=== PATIENT | female | born 1950 | race Caucasian/White ===

== ENCOUNTER 2020-04-07 07:43 | Outpatient (REF) | payer MEDICARE, MEDICAID, SELFPAY ==
[2020-04-07 08:32] LABS: Cholesterol 226 mg/dL; Glucose Fasting 98 mg/dL (60-99); HDL Cholesterol 59 mg/dL; LDL Cholesterol Calculated 143 mg/dl; Triglycerides 123 mg/dL
== END 2020-04-07 07:44 | disposition home or self-care (01) ==
LOC: HO.LAB 07:43
PROVIDERS: PCP Internal Medicine; Visit Provider Psychiatry & Neurology Psychiatry
DX: F33.42 Major depressive disorder, recurrent, in full remission (principal); Z79.899 Other long term (current) drug therapy
CPT/HCPCS: 80061; 82947

== ENCOUNTER 2020-08-29 16:55 | Outpatient (REF) | payer MEDICARE, MEDICAID, SELFPAY ==
--- NOTE | ~2020-08-29 | XR_ITS ---
EXAMINATION: XR HIP, LEFT CLINICAL INFORMATION: Left hip pain. COMPARISON: None TECHNIQUE: Two views of the left hip. FINDINGS: Bones and soft tissues are normal. No lytic or blastic osseous lesions. No fracture. Alignment is anatomic. Hip joint space is maintained. XR/XR hip LT min 2V IMPRESSION: Left hip: No acute fracture or malalignment. Preserved left hip joint space. No lytic or blastic osseous lesions.
== END 2020-08-29 16:56 | disposition home or self-care (01) ==
LOC: HO.XRAY 16:55
PROVIDERS: PCP Internal Medicine; Visit Provider Internal Medicine
DX: M25.552 Pain in left hip (principal)
CPT/HCPCS: 73502

== ENCOUNTER 2021-05-05 20:09 | Emergency (ER) | payer MEDICARE, MEDICAID, SELFPAY ==
--- NOTE | ~2021-05-05 | XR_ITS ---
EXAMINATION: XR CHEST CLINICAL INFORMATION: Cough COMPARISON: Chest CT 03/04/2018 TECHNIQUE: Frontal view of the chest was obtained. FINDINGS: The lungs are well expanded and clear of acute opacity. There is a nodular density in the right perihilar region, likely corresponding to fusiform nodularity demonstrated on previous chest CT. There is no active pleural disease. The mediastinum is unremarkable. There is no vascular congestion. XR/XR chest 1V IMPRESSION: No acute abnormality is seen in the chest. Small right perihilar nodular density, likely unchanged from prior chest CT.
--- NOTE | ~2021-05-05 | CT_ITS ---
EXAMINATION: CT ABDOMEN AND PELVIS WITH CONTRAST CLINICAL INFORMATION: Right-sided abdominal pain. COMPARISON: CT abdomen/pelvis dated from 03/14/2013. CT chest dated from 07/08/2017. TECHNIQUE: Multidetector volumetric images were obtained from the superior aspect of the liver through the pubic symphysis following administration 85 mL of Omnipaque 350 intravenous contrast. Sagittal and coronal reformatted images were obtained on the technologist's workstation. Oral contrast: No This CT examination was performed using dose optimization techniques as appropriate, variously including the following: *Automated exposure control *Adjustment of mA and/or kV according to patient size (this includes techniques or standardized protocols for targeted exams where dose is matched to indication/reason for exam; i.e. extremities or head) *Use of iterative reconstruction technique DLP: 799 mGy-cm FINDINGS: LUNG BASES: Focal tree-in-bud nodularities in the right lower lobe (4:1) are unchanged. Similarly, an area of subpleural thickening in the right middle lobe (images 6 through 25 of series 4) is unchanged. LIVER, GALLBLADDER, AND BILIARY TREE: Redemonstration of a calcified granuloma in the hepatic dome (3:10). Otherwise, the liver is normal in size, shape and attenuation without focal abnormalities. Cholecystectomy with stable dilatation of the common bile duct measuring up to 0.8 cm since 2012. No intrahepatic biliary ductal dilatation. PANCREAS: Unremarkable. SPLEEN: Unremarkable. ADRENAL GLANDS: Unremarkable. KIDNEYS AND URETERS: The kidneys are normal in size, shape, and attenuation. There is a 2.1 cm water density cyst in the lower pole of the right kidney (5:44). There are multiple other too small to characterize cortical hypodensities which statistically are likely to represent simple cysts and do not require further follow-up. No hydronephrosis, hydroureter, or calculi seen. No perinephric stranding. BLADDER: Unremarkable. GASTROINTESTINAL TRACT: The stomach and the small bowel are nondilated. No active inflammatory bowel changes. Normal appendix. Mild diverticulosis. No bowel obstruction. ABDOMINAL WALL: No significant hernia. Similar asymmetric atrophy of the right iliopsoas muscle and right gluteal muscles. Indeterminate soft tissue granuloma in the left lower abdominal wall (3:52) likely from a prior injection site or remote trauma. LYMPH NODES: No lymphadenopathy by size criteria. VASCULAR: Atherosclerotic disease. The abdominal aorta is of normal diameter. PELVIC VISCERA: No pelvic masses. OSSEOUS STRUCTURES: No acute or aggressive osseous abnormalities. Thoracolumbar spondylosis. Partially visualized total right-sided hip arthroplasty. CT/CT abdomen pelvis w con IMPRESSION: No acute abdominal or pelvic abnormalities to explain the patient's symptoms. Mild diverticulosis without evidence of acute diverticulitis. Stable prominence of the common bile duct since 2012 likely related with post cholecystectomy state and patient's age. Stable tree-in-bud nodularities in the right lower lobe since 2018.
[2021-05-05 22:25] VITALS: BP 175/76; PULSE 64; RESP 18; TEMP 37.1; O2SAT 97; BMI 34.0
[2021-05-06 07:16] VITALS: BP 173/67; PULSE 69; RESP 18; O2SAT 97
[2021-05-06 07:26] LABS: MANUAL DIFF FLAG NO
[2021-05-06 07:27] LABS: Basophils Percent Auto 0.2 % (0-2); Eosinophils Absolute Auto 0.1 X10*3/uL (0.0-0.4); Hematocrit 39.4 % (37.0-47.0); Hemoglobin 12.9 g/dl (12.0-16.0); Imm Gran Abs Auto 0.04 X10*3/uL (0.00-0.03); Imm Gran Pct Auto 0.4 % (0.0-0.4); Lymphocytes Percent Auto 20.3 % (20-40); Mean Corpuscular HGB Conc 32.7 g/dl (31.0-35.0); Mean Corpuscular Volume 91.6 fL (80.0-98.0); Monocytes Absolute Auto 0.8 X10*3/uL (0.1-1.2); Monocytes Percent Auto 8.7 % (2-11); Neutrophils Absolute Auto 6.7 x10*3/uL (2.0-8.3); Neutrophils Percent Auto 69.4 % (45-73); Platelet Count 350 X10*3/uL (160-400); White Blood Count 9.6 X10*3/uL (4.8-10.8)
[2021-05-06 07:55] LABS: Alanine Aminotransferase 19 U/L (0-31); Alkaline Phosphatase 43 U/L (39-117); Anion Gap 10 (12-20); Aspartate Amino Transferase 21 U/L (5-31); Bilirubin Total < 0.2 mg/dL (0.0-1.0); Blood Urea Nitrogen 17 mg/dL (9-16); Calcium 9.6 mg/dL (8.4-10.2); Carbon Dioxide 29 mmol/L (22-29); Chloride 105 mmol/L (96-108); Creatinine Clr Calc Pharmacy 56.5; Estimated Glomerular Filt Rate > 60; Glucose Random 94 mg/dL (60-115); Lipase 36 U/L (8-78); Potassium 4.3 mmol/L (3.3-5.1); Sodium 140 mmol/L (135-145); Total Protein 6.9 g/dL (6.5-8.0)
--- NOTE | 2021-05-06 08:52 | ED_ITS ---
HPI - Abdominal Pain General Chief Complaint: General Medical Stated Complaint: abd pain Time Seen by Provider: 05/05/21 22:11 Source: patient Mode of arrival: ambulatory Limitations: no limitations History of Present Illness MD elicited complaint: abdominal pain Pertinent past history: none Onset (ago): week(s) (much worse past week) Pain Consistency: intermittent Location: RLQ Severity: moderate Quality: stabbing Radiation: none Migration to: no migration Exacerbating factors: other (coughing) Relieving factors: nothing Associated symptoms: denies other symptoms Related Data Previous Rx's Medication Instructions Recorded fluoride (sodium) 1.1 % dental gel 1 appl PO DIRECTED 30 Days #100 04/16/20 (PreviDent 5000 Dry Mouth) cap ibuprofen 800 mg tablet 800 mg PO Q8H PRN 30 Days #90 tab 08/30/20 acyclovir 5 % topical cream 1 appl TOPICAL ONCE 5 Days #5 g 09/06/20 (Zovirax) valacyclovir 500 mg tablet 500 mg PO BID 7 Days #14 tab 09/06/20 (Valtrex) acyclovir 5 % topical ointment 1 appl TOPICAL 6XD 7 Days #10 g 09/07/20 (Zovirax) acetaminophen 300 mg-codeine 30 mg 1 tab PO Q8H PRN 7 Days #21 tab 09/11/20 tablet tamsulosin 0.4 mg capsule 0.4 mg PO BEDTIME 7 Days #7 cap 09/14/20 left below knee prosthetic liners #2 ea 03/09/21 cyclobenzaprine 10 mg tablet 10 mg PO TID PRN #14 tab 05/06/21 Allergies Allergy/AdvReac Type Severity Reaction Status Date / Time No Known Allergies Allergy Verified 04/03/20 06:55 Review of Systems Review of Systems Constitutional : No Weight loss, No Fever, No Chills ENT/Mouth : No sore throat, No Rhinorrhea Eyes: No Swelling, No Redness Cardiovascular : No Chest Pain, No SOB, NoEdema Respiratory : No Cough, No Sputum, No Wheezing Gastrointestinal :no Nausea, no Vomiting, no Diarrhea, positive abdominal Pain, No Hematochezia, No Melena Genitourinary : No Dysuria, No Urinary Frequency, No Hematuria, No Urgency Musculoskeletal : No joint pain, No Myalgias, No Joint Swelling Skin : No Skin Lesions, No rash Neuro : No Weakness, No Numbness, No Dizziness, No Headache Psych : No Anxiety/Panic, No Depression Heme/Lymph: No Bruising, No Lymphadenopathy Endocrine : No Polyuria, No Polydipsia All other systems reviewed and are negative. Physical Exam Vital Signs: Vital Signs: Last Vital Signs Temp 97.9 F 05/06/21 09:17 Pulse 64 05/06/21 09:17 Resp 16 05/06/21 09:17 BP 136/70 05/06/21 09:17 Pulse Ox 97 05/06/21 09:17 BMI result Body Mass Index 34.0 Appearance: Alert. Oriented X3. No acute distress. Eyes: Pupils equal, round and reactive to light. ENT: Pharynx normal. Neck: Normal inspection. Neck supple. CVS: Normal heart rate and rhythm. Pulses normal. Respiratory: No respiratory distress. Breath sounds normal. Abdomen: Soft and mild R mid abdomen ttp I do not appreciate mass or defect Skin: Skin warm and dry. Normal skin color. Normal skin turgor. Extremities: No lower extremity edema. No calf ttp Neuro: Oriented X 3. No motor deficit. No sensory deficit. Course Course Course Narrative: slight hematuria no UA symptoms CT scan negative stable for outpatient treatment likely MSK strain MDM - Abdominal Pain MDM Narrative Medical decision making narrative: 70 yo female with hx of kidney stones pre sents with c/o R sided abdominal pain with coughing no mass felt no AC therapy or risk factors for rectus sheath hematoma at this time will obtain labs, UA, CT scan for mass/appendicitis, declines pain medications at this time. Lab Data Result diagrams: 05/06/21 07:21 05/06/21 07:21 Labs: Lab Results 05/06/21 05/06/21 05/06/21 Range/Units 07:21 07:21 09:13 WBC 9.6 (4.8-10.8) X10*3/uL RBC 4.30 (4.20-5.50) X10*6/uL Hgb 12.9 (12.0-16.0) g/dl Hct 39.4 (37.0-47.0) % MCV 91.6 (80.0-98.0) fL MCH 30.0 (27.0-33.0) pg MCHC 32.7 (31.0-35.0) g/dl RDW 13.0 (11.0-16.0) % Plt Count 350 (160-400) X10*3/uL MPV 9.0 L (9.4-12.3) fL Immature Gran % (Auto) 0.4 (0.0-0.4) % Neut % (Auto) 69.4 (45-73) % Lymph % (Auto) 20.3 (20-40) % [place] % (Auto) 8.7 (2-11) % Eos % (Auto) 1.0 (0-4) % Baso % (Auto) 0.2 (0-2) % Lymph # (Auto) 2.0 (1.2-4.9) X10*3/uL [place] # (Auto) 0.8 (0.1-1.2) X10*3/uL Eos # (Auto) 0.1 (0.0-0.4) X10*3/uL Baso # (Auto) 0.0 (0.0-0.2) X10*3/uL Abs Immat Gran (auto) 0.04 H (0.00-0.03) X10*3/uL Absolute Neuts (auto) 6.7 (2.0-8.3) x10*3/uL Absolute Nucleated RBC 0.000 (0.0-0.012) X10*3/uL Nucleated RBC % (auto) 0.0 (0.0-0.2) /100WBC Sodium 140 (135-145) mmol/L Potassium 4.3 (3.3-5.1) mmol/L Chloride 105 (96-108) mmol/L Carbon Dioxide 29 (22-29) mmol/L Anion Gap 10 L (12-20) BUN 17 H (9-16) mg/dL Creatinine 0.87 (0.5-1.4) mg/dL Estim Creat Clear Calc 56.5 Estimated GFR > 60 Random Glucose 94 (60-115) mg/dL Calcium 9.6 (8.4-10.2) mg/dL Total Bilirubin < 0.2 (0.0-1.0) mg/dL AST 21 (5-31) U/L ALT 19 (0-31) U/L Alkaline Phosphatase 43 (39-117) U/L Total Protein 6.9 (6.5-8.0) g/dL Albumin 4.0 (3.5-5.0) g/dL Lipase 36 (8-78) U/L Urine Color YELLOW Urine Appearance CLEAR Urine pH 6.0 (5.0-8.0) Ur Specific [place] 1.025 (1.005-1.025) Urine Protein NEG (NEG-TRACE) MG/DL Urine Glucose (UA) NEG (NEG) MG/DL Urine Ketones NEG (NEG) MG/DL Urine Blood 2+ H (NEG) Urine Nitrite NEG (NEG) Ur Leukocyte Esterase NEG (NEG) Urine RBC 5-9 H (0) /HPF Urine WBC 0-2 (0-4) /HPF Ur Squamous Epith Cells 1+ /LPF Urine Bacteria TRACE /LPF COVID-19 (TONY) (Negative) COVID-19 Clin Com 05/06/21 Range/Units 09:13 WBC (4.8-10.8) X10*3/uL RBC (4.20-5.50) X10*6/uL Hgb (12.0-16.0) g/dl Hct (37.0-47.0) % MCV (80.0-98.0) fL MCH (27.0-33.0) pg MCHC (31.0-35.0) g/dl RDW (11.0-16.0) % Plt Count (160-400) X10*3/uL MPV (9.4-12.3) fL Immature Gran % (Auto) (0.0-0.4) % Neut % (Auto) (45-73) % Lymph % (Auto) (20-40) % [place] % (Auto) (2-11) % Eos % (Auto) (0-4) % Baso % (Auto) (0-2) % Lymph # (Auto) (1.2-4.9) X10*3/uL [place] # (Auto) (0.1-1.2) X10*3/uL Eos # (Auto) (0.0-0.4) X10*3/uL Baso # (Auto) (0.0-0.2) X10*3/uL Abs Immat Gran (auto) (0.00-0.03) X10*3/uL Absolute Neuts (auto) (2.0-8.3) x10*3/uL Absolute Nucleated RBC (0.0-0.012) X10*3/uL Nucleated RBC % (auto) (0.0-0.2) /100WBC Sodium (135-145) mmol/L Potassium (3.3-5.1) mmol/L Chloride (96-108) mmol/L Carbon Dioxide (22-29) mmol/L Anion Gap (12-20) BUN (9-16) mg/dL Creatinine (0.5-1.4) mg/dL Estim Creat Clear Calc Estimated GFR Random Glucose (60-115) mg/dL Calcium (8.4-10.2) mg/dL Total Bilirubin (0.0-1.0) mg/dL AST (5-31) U/L ALT (0-31) U/L Alkaline Phosphatase (39-117) U/L Total Protein (6.5-8.0) g/dL Albumin (3.5-5.0) g/dL Lipase (8-78) U/L Urine Color Urine Appearance Urine pH (5.0-8.0) Ur Specific [place] (1.005-1.025) Urine Protein (NEG-TRACE) MG/DL Urine Glucose (UA) (NEG) MG/DL Urine Ketones (NEG) MG/DL Urine Blood (NEG) Urine Nitrite (NEG) Ur Leukocyte Esterase (NEG) Urine RBC (0) /HPF Urine WBC (0-4) /HPF Ur Squamous Epith Cells /LPF Urine Bacteria /LPF COVID-19 (TONY) Negative (Negative) COVID-19 Clin Com See Note Discharge Plan Discharge Clinical Impression: Abdominal wall strain Qualifiers: Encounter type: initial encounter Qualified Code(s): S39.011A - Strain of muscle, fascia and tendon of abdomen, initial encounter Hematuria Qualifiers: Hematuria type: unspecified type Qualified Code(s): R31.9 - Hematuria, unspecified Patient Disposition: Home, Self-Care Instructions: Hematuria (ED), Abdominal Pain (ED) Additional Instructions: return to ED for any worsening symptoms or concerns No acute abdominal or pelvic abnormalities to explain the patient's symptoms. ? Mild diverticulosis without evidence of acute diverticulitis. ? Stable prominence of the common bile duct since 2012 likely related with post cholecystectomy state and patient's age. ? Stable tree-in-bud nodularities in the right lower lobe since 2018. slight blood in urine repeat with your doctor Prescriptions: New cyclobenzaprine 10 mg tablet 10 mg PO TID PRN (Reason: muscle spasm) Qty: 14 RF: 0 No Action fluoride (sodium) [PreviDent 5000 Dry Mouth] 1.1 % gel 1 appl PO DIRECTED 30 Days Qty: 100 RF: 6 ibuprofen 800 mg tablet 800 mg PO Q8H PRN (Reason: pain) 30 Days Qty: 90 RF: 0 acyclovir [Zovirax] 5 % cream 1 appl topical ONCE 5 Days Qty: 5 RF: 6 valacyclovir [Valtrex] 500 mg tablet 500 mg PO BID 7 Days Qty: 14 RF: 0 acyclovir [Zovirax] 5 % ointment 1 appl topical 6XD 7 Days Qty: 10 RF: 1 acetaminophen-codeine 300-30 mg tablet 1 tab PO Q8H PRN (Reason: pain) 7 Days Qty: 21 RF: 0 tamsulosin 0.4 mg capsule 0.4 mg PO BEDTIME 7 Days Qty: 7 RF: 0 (DME) left below knee prosthetic liners See Rx Instructions .Route .MEDSUPPLY Qty: 2 RF: 0 Referrals: Lashonda Paris MD [Primary Care Provider] - 2 days Interventions: ED Discharge Assessment Last Done: 05/06/21 11:18 Discharge Date/Time: 05/06/21 11:19 [facility] Past Medical History Attestation statement: The following information was validated with the patient. 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
[2021-05-06 09:17] VITALS: BP 136/70; PULSE 64; RESP 16; TEMP 36.6; O2SAT 97
[2021-05-06 09:22] LABS: Appearance Urine CLEAR; Color Urine YELLOW; Glucose Urine UA NEG (NEG); Leukocyte Esterase Urine NEG (NEG); Nitrite Urine NEG (NEG); Specific Gravity - Urine 1.025 (1.005-1.025); UACC Culture Trigger NO; Urine Blood 2+ (NEG); Urine Ketones NEG (NEG); Urine Protein NEG (NEG-TRACE)
[2021-05-06 09:29] LABS: Squamous Epithelial Cell Urine 1+ /LPF
[2021-05-06 09:30] LABS: WBC Urine 0-2 /HPF (0-4)
[2021-05-06 09:31] LABS: Bacteria Urine TRACE /LPF
[2021-05-06 09:37] LABS: COVID-19 Test Negative (Negative); IDNOW Serial# 9DD0AD1C
[2021-05-06] MEDS: iohexoL 350 MG/ML 100 ML INFUS..BTL IV (09:51)
== END 2021-05-06 11:19 | disposition home or self-care (01) ==
PROVIDERS: Student in an Organized Health Care Education/Training Program; Emergency Provider Emergency Medicine; PCP Internal Medicine
DX: S39.011A Strain of muscle, fascia and tendon of abdomen, initial encounter (principal); R31.9 Hematuria, unspecified; X58.XXXA Exposure to other specified factors, initial encounter; Y93.9 Activity, unspecified; Y92.9 Unspecified place or not applicable; Y99.9 Unspecified external cause status; Z20.822 Contact with and (suspected) exposure to COVID-19
CPT/HCPCS: 36415; 71045; 74177; 80053; 81001; 83690; 85025; 87635; 99283; 99284; Q9967

== ENCOUNTER 2021-05-30 07:37 | Outpatient (REF) | payer MEDICARE, MEDICAID, SELFPAY ==
[2021-05-30 11:11] LABS: Cholesterol 226 mg/dL; Glucose Fasting 100 mg/dL (60-99); HDL Cholesterol 56 mg/dL; LDL Cholesterol Calculated 150 mg/dl; Triglycerides 101 mg/dL
== END 2021-05-30 07:38 | disposition home or self-care (01) ==
LOC: HO.10HDL 07:37
PROVIDERS: Visit Provider Psychiatry & Neurology Psychiatry
DX: F33.42 Major depressive disorder, recurrent, in full remission (principal); Z51.81 Encounter for therapeutic drug level monitoring; Z79.899 Other long term (current) drug therapy
CPT/HCPCS: 36415; 80061; 82947

== ENCOUNTER → 2021-08-27 10:24 | Outpatient (BNVA) | payer MEDICARE, MEDICAID, SELFPAY | PROVIDERS: PCP Internal Medicine; Visit Provider Internal Medicine | DX: J44.9 Chronic obstructive pulmonary disease, unspecified (principal) | CPT/HCPCS: 94010; 99212 ==

== ENCOUNTER 2022-07-28 09:20 | Outpatient (REF) | payer MEDICARE, MEDICAID, SELFPAY ==
[2022-07-28 11:00] LABS: Cholesterol 240 mg/dL; Glucose Fasting 97 mg/dL (60-99); HDL Cholesterol 63 mg/dL; LDL Cholesterol Calculated 157 mg/dl; Triglycerides 101 mg/dL
== END 2022-07-28 09:21 | disposition home or self-care (01) ==
LOC: HO.10HDL 09:20
PROVIDERS: PCP Internal Medicine; Visit Provider Psychiatry & Neurology Psychiatry
DX: Z13.89 Encounter for screening for other disorder (principal)
CPT/HCPCS: 36415; 80061; 82947

== ENCOUNTER → 2022-09-08 13:51 | Outpatient (BNVA) | payer MEDICARE, MEDICAID, SELFPAY | PROVIDERS: PCP Internal Medicine; Visit Provider Internal Medicine | DX: J44.9 Chronic obstructive pulmonary disease, unspecified (principal); Z89.512 Acquired absence of left leg below knee; Z97.14 Presence of artificial left leg (complete) (partial) | CPT/HCPCS: 99212 ==

== ENCOUNTER 2023-04-10 13:00 | Outpatient (RCR) | payer MEDICARE, MEDICAID, SELFPAY | END 2023-05-20 12:34 | disposition home or self-care (01) | LOC: HO.PT 13:00 | PROVIDERS: PCP Internal Medicine; Visit Provider Internal Medicine | DX: R26.81 Unsteadiness on feet (principal); Z89.512 Acquired absence of left leg below knee | CPT/HCPCS: 97110; 97112; 97116; 97140; 97161; 97530 ==

== ENCOUNTER 2023-04-21 12:26 | Outpatient (AMB) | payer MEDICARE, MEDICAID, SELFPAY ==
[2023-04-21 12:35] VITALS: BP 130/70; PULSE 68; O2SAT 97; BMI 32.1
--- NOTE | 2023-04-21 12:35 | A.OFFPC_ITS ---
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 Accompanied by: Self / Same As Patient Allergies No Known Allergies Allergy (Verified 04/21/23 12:44) Medication List - Last Reconciled 04/21/23 by Lashonda Narayan MD aripiprazole (Abilify) 5 mg PO BEDTIME bupropion HCl (Wellbutrin SR) 150 mg PO QAM duloxetine (Cymbalta) 120 mg PO DAILY ibuprofen 800 mg PO Q8H PRN 30 days [left below knee prosthetic liners As directed K3] Tobacco use date assessed: 04/21/23 Fall risk assessment: 1 Fall in past year Last assessed Fall Risk: 04/21/23 Dental Screening Dental Screen Date: 04/21/23 Did you have a dental visit in the last 12 months?: Yes Did you have a dental problem in the last 6 months where you did not have access to dental care?: No Was dental information given to patient?: Patient has dentist HPI HPI Comments History of Present Illness Details This is a 72-year-old female with COPD and history of left below-knee amputation you prothesis that comes today for follow-up on her conditions. COPD stable and is follow by pulmonology. Employe prothesis of left leg with no problem. Still has left hip pain that improves with ibuprofen as needed. No chest pain or shortness of breath. She also has mild major depression follow by Psychiatry and has been stable with medications. [facility] Medical History (Updated 04/21/23 @ 13:02 by Lashonda Narayan MD) COPD (chronic obstructive pulmonary disease) Renal calculi Left hip pain 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 Surgical History Hx of BKA History of surgery on arm History of uterine fibroid History of bladder surgery Family History Father Cancer Mother Emphysema lung Brother Suicide Brother Lung cancer Brother COPD (chronic obstructive pulmonary disease) Family/Other FH: mental illness Substance use disorder Social History Household Members: None Housing: House Alcohol intake: former Patient Tobacco Use Status: Former Tobacco user Tobacco use type: Cigarette e-Cigarette/Vaping Use: Never Used Second Hand Smoke Exposure: No Substance Use Type: Marijuana service: No Current occupational status: disabled Cognitive needs: Yes Hearing needs: No Vision needs: No Questionnaire PHQ-9 Over the last 2 weeks, how often have you been bothered by any of the following problems? 1. Little interest or pleasure in doing things: not at all 2. Feeling down, depressed, or hopeless: not at all 3. Trouble falling or staying asleep, or sleeping too much: not at all 4. Feeling tired or having little energy: not at all 5. Poor appetite or overeating: not at all 6. Feeling bad about yourself - or that you are a failure or have let yourself or your family down: not at all 7. Trouble concentrating on things, such as reading the newspaper or watching television: not at all 8. Moving or speaking so slowly that other people could have noticed. Or the opposite - being so fidgety or restless that you have been moving around a lot more than usual: not at all 9. Thoughts that you would be better off or of hurting yourself in some way: not at all Total score: 0 Depression Screening Interpretation: Negative Depression Screening Done: Yes 21681 - PHQ-9 Billing: Yes Source: Developed by Drs. Spencer Shin, Eliza Velásquez, Jaylen Gamez and colleagues, with an educational jorge from [employer]. Thrive Questionnaire Date Thrive assessed: 04/21/23 I am a: Patient What is your living situation today?: I have a steady place to live Within the past 12 months, did the food you bought not last and you didn't have the money to get more?: Never true Within the past 12 months, did you worry whether your food would run out before you got money to buy more?: Never true Do you have trouble paying for medicines?: No Do you have trouble getting transportation to medical appointments?: No Do you have trouble paying your heating and electricity bill?: No Do you have trouble taking care of your child, family member or friend?: No Do you have trouble with day-to-day activities such as bathing, preparing meals, shopping, managing finances, etc.?: No Are you currently unemployed and looking for a job?: No Are you interested in more education?: No Please select the resources that you would like help with: None Currently or been in a relationship where the following occur: no concerns reported AUDIT C Alcohol Use Questionnaire (AUDIT-C) 1. How often do you have a drink containing alcohol?: Never Total Score: 0 ANGEL LUIS-7 AMB Questionnaire ANGEL LUIS-7 Date ANGEL LUIS - 7 assessed: 04/21/23 Feeling nervous, anxious, or on edge: 0 = Not at all Not being able to stop or control worryin = Not at all Worrying too much about different things: 0 = Not at all Trouble relaxin = Not at all Being so restless that it is hard to sit still: 0 = Not at all Becoming easily annoyed or irritable: 0 = Not at all Feeling afraid as if something awful might happen: 0 = Not at all Total ANGEL LUIS-7 score (0-4 normal; 5-9 mild; 10-14 moderate; 15-21 severe): 0 Source: Developed by Drs. Spencer Shin, Eliza Velásquez, Jaylen Gamez and colleagues, with an educational jorge from [employer]. ANGEL LUIS-7 Assessment Billing ANGEL LUIS-7 Assessment Tool: ANGEL LUIS-7 Assessment 29579 Review of Systems Const All systems reviewed & are unremarkable except as noted in HPI and below Eyes Reports no additional complaints, Denies change in vision and Denies other visual disturbances Card Denies chest pain at rest, Denies chest pain with activity, Denies edema, Denies irregular heart rhythm, Denies claudication, Denies dyspnea, Denies dyspnea on exertion, Denies orthopnea, Denies paroxysmal nocturnal dyspnea and Denies slow heart rate Resp Denies cough, Denies dyspnea and Denies dyspnea on exertion GI Denies abdominal pain, Denies change in bowel habits, Denies excessive flatus, Denies nausea and Denies vomiting Denies urinary incontinence, Denies urinary hesitancy and Denies urinary urgency Musc Denies abnormal gait, Denies atrophy, Denies deformity and Denies limited range of motion Skin/Breast Denies bleeding lesions, Denies changing lesions and Denies rash Neuro Denies abnormal gait and Denies lack of coordination Physical exam (Primary Care) Vital Signs: Last Vital Signs Pulse 68 04/21/23 12:35 BP 130/70 04/21/23 12:35 Pulse Ox 97 04/21/23 12:35 Oxygen Delivery Method Room Air 04/21/23 12:35 BMI result Body Mass Index 32.1 Tobacco/Smoking Status: Tobacco use Status Tobacco use date assessed 04/21/23 04/21/23 12:42 Patient Tobacco Use Status Former Tobacco user 04/21/23 12:42 Tobacco use type Cigarette 04/21/23 12:42 e-Cigarette/Vaping Use Never Used 04/21/23 12:42 PHQ-9: PHQ-9 Score PHQ-9: Total score 0 04/21/23 12:42 Depression Screening Interpretation: Negative Thrive Assessment: Date of Thrive Assessment Date Thrive assessed 04/21/23 04/21/23 12:42 Currently or been in a relationship where the following occur: no concerns reported Eyes General: appearance normal, both eyes and all related structures Eyelids: Yes eyelids normal Conjunctivae: conjunctivae normal Neck Neck: Yes normal visual inspection and Yes supple Resp Effort & Inspection: normal respiratory effort Auscultation: clear to auscultation bilaterally Cardio Jugular venous distension: no JVD Rate: regular rate Rhythm: regular rhythm Heart sounds: S1 normal heart sound present and S2 normal heart sound present Extrem Other: Left below knee amputation Office Procedures Flu Questionnaire Does the patient have a severe egg allergy?: No Immunizations flu vacc [id number] 6mos up(PF) 60 mcg(15 mcgx4)/0.5 mL IM syringe Performing Provider: Lashonda Narayan MD [facility] Documented (not given) by: ZENON He on 04/21/23 12:43 Reason Not Given: Patient Refused Assessment and Plan Assessment & Plan (1) COPD (chronic obstructive pulmonary disease): Comment: This patient does have past history of COPD. She has not smoked for many many years. Lungs have definitely improved. Spirometry on her last visit showed mild Obstructive Disorder . She has not required to use any bronchodilator inhalers. Advised to just keep PROAIR HFA on hand to use 2 puffs PRN . She may come to see me once a year and also need. Code(s): J44.9 - Chronic obstructive pulmonary disease, unspecified Plan: Use rescue inhaler as needed. Follow-up with pulmonology. (2) Below knee amputation: Comment: She is the a below-knee amputation on the left side and veers artificial limb which works very well, She is able to walk as well as even climb low-level mountains. Code(s): S88.119A - Complete traumatic amputation at level between knee and ankle, unspecified lower leg, initial encounter Plan: Continue the use of prothesis prn. (3) Left hip pain: Code(s): M25.552 - Pain in left hip Plan: Continue ibuprofen as needed. (4) Mild major depression: Code(s): F32.0 - Major depressive disorder, single episode, mild Plan: Continue Abilify and Wellbutrin. Follow-up with psychiatry. Orders: Orders Influenza [id number] Immunization Today Z23 - Encounter for immunization Medications: New aripiprazole 2 mg PO BEDTIME 30 days 30 tabs 0RF bupropion HCl 300 mg PO QAM 30 days 30 tabs 0RF azithromycin Take 2 tabs the first day, then 1 tab for the next 4 days 250 mg PO DAILY 5 days 6 tabs 0RF Changed From duloxetine (Cymbalta) 120 mg PO DAILY To duloxetine (Cymbalta) 90 mg PO DAILY Coding Level of Care Code Est Pt Level 4 (98094) Diagnoses COPD (chronic obstructive pulmonary disease) J44.9 Below knee amputation S88.119A Left hip pain M25.552 Mild major depression F32.0 Additional Codes ANGEL LUIS-7 Assessment Billing - ANGEL LUIS-7 Assessment Tool: ANGEL LUIS-7 Assessment 33627 ([id number]) Time Spent (min) 21
== END 2023-04-21 12:59 | disposition home or self-care (01) ==
PROVIDERS: PCP Internal Medicine; Visit Provider Internal Medicine
DX: J44.9 Chronic obstructive pulmonary disease, unspecified (principal); S88.119A Complete traumatic amputation at level between knee and ankle, unspecified lower leg, initial encounter; F32.0 Major depressive disorder, single episode, mild; M25.552 Pain in left hip
CPT/HCPCS: 99214

== ENCOUNTER 2023-04-30 14:50 | Outpatient (REF) | payer MEDICARE, MEDICAID, SELFPAY ==
[2023-05-01 08:01] LABS: HBS Num1 2.95 mIU/mL (0-7.99); HBc Num1 0.09 S/CO (0.00-0.79); HBsAGNum1 0.56 S/CO (0.00-0.99); Hepatitis B Core Antibody Nonreactive (Nonreactive); Hepatitis B Surface Antigen Negative (Negative); ~Hepatitis B Surface Antibody NONREACTIVE (Nonreactive)
== END 2023-04-30 14:51 | disposition home or self-care (01) ==
LOC: HO.LAB 14:50
PROVIDERS: PCP Internal Medicine; Visit Provider Internal Medicine
DX: Z01.84 Encounter for antibody response examination (principal)
CPT/HCPCS: 36415; 86704; 86706; 86735; 86762; 86765; 87340

== ENCOUNTER 2023-05-15 08:55 | Outpatient (AMB) | payer MEDICARE, MEDICAID, SELFPAY ==
[2023-05-15 09:25] VITALS: BMI 32.1
--- NOTE | 2023-05-15 09:25 | AM.OFFVISNUR ---
Intake Vital Signs 05/15/23 09:25 Height 5 ft 1 in Weight 170 lb BMI 32.1 Intake Visit Reasons: Hep B/ TDap Allergies No Known Allergies Allergy (Verified 04/21/23 12:44) Immunizations Engerix-B (PF) 20 mcg/mL intramuscular suspension Performing Provider: Lashonda Narayan MD Performing Location: [facility] Documented (not given) by: JEANETTE Wise on 05/15/23 09:27 Reason Not Given: Not Given Engerix-B (PF) 20 mcg/mL intramuscular suspension Performing Provider: Lashonda Narayan MD Performing Location: [facility] Administered by: JEANETTE Wise on 05/15/23 09:33 Dose Route Admin Location Dispensed Lot Number Expiration Date [facility] Ginseng Farmer 1 mL IM Left Deltoid 1 mL [id number] 09/26/24 97847-479-25 GLAXOSMITHKLINE VIS Given Date VIS Provided VIS Publication Date 05/15/23 Single Vaccine 22 Eligibility Eligibility Date Funding Source Not VFC Eligible 05/15/23 Private Boostrix Tdap 2.5 Lf unit-8 mcg-5 Lf/0.5 mL intramuscular syringe Performing Provider: Lashonda Narayan MD Performing Location: [facility] Administered by: JEANETTE Wise on 05/15/23 09:27 Dose Route Admin Location Dispensed Lot Number Expiration Date NDC Ginseng Farmer 0.5 mL IM Left Deltoid 0.5 mL [id number] 09/03/25 [id number] GLAXOSMITHKLINE VIS Given Date VIS Provided VIS Publication Date 05/15/23 Single Vaccine 20 Eligibility Eligibility Date Funding Source Not VFC Eligible 05/15/23 Private Coding Assessment & Plan Assessment & Plan Orders: Orders Hepatitis B Adult Immunization Today Z23 - Encounter for immunization TDaP Immunization Today Z23 - Encounter for immunization Hepatitis B Adult Immunization Today Z23 - Encounter for immunization
== END 2023-05-15 09:41 | disposition home or self-care (01) ==
PROVIDERS: PCP Internal Medicine; Visit Provider Internal Medicine
DX: Z23 Encounter for immunization (principal)
CPT/HCPCS: 90471; 90715; 90746

== ENCOUNTER 2023-06-09 09:54 | Outpatient (AMB) | payer MEDICARE, MEDICAID, SELFPAY ==
[2023-06-09 09:56] VITALS: BMI 32.3
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
== END 2023-06-09 10:33 | disposition home or self-care (01) ==
PROVIDERS: PCP Internal Medicine; Visit Provider Orthopaedic Surgery
DX: M25.561 Pain in right knee (principal)
CPT/HCPCS: 20610; 99202

== ENCOUNTER 2023-06-09 12:08 | Outpatient (REF) | payer MEDICARE, MEDICAID, SELFPAY ==
--- NOTE | ~2023-06-09 | XR_ITS ---
EXAMINATION: XR KNEE, RIGHT CLINICAL INFORMATION: Pain. COMPARISON: Radiographs dated 05/22/2011; report of the MRI right knee dated 02/08/2008. TECHNIQUE: AP, lateral and sunrise views of the right knee are submitted. FINDINGS: Bony alignment and mineralization are normal. The lateral, medial and patellofemoral joint space compartments are show mild to moderate narrowing, with peripheral osteophyte formation. No fracture, dislocation or joint effusion is seen. There is a stable, previously described osteochondroma seen arising from the posterior margin of the proximal tibia. There is no foreign body. XR/XR knee RT 3V IMPRESSION: 1. There is mild to moderate tricompartment osteoarthritic change of the right knee. 2. A previously noted tibial osteochondroma shows a continued stable radiographic appearance.
== END 2023-06-09 12:09 | disposition home or self-care (01) ==
LOC: HO.HOSX 12:08
PROVIDERS: Visit Provider Orthopaedic Surgery
DX: M25.561 Pain in right knee (principal); Z89.512 Acquired absence of left leg below knee; Z97.14 Presence of artificial left leg (complete) (partial)
CPT/HCPCS: 20610; 73562; 99202; J1020

== ENCOUNTER 2023-06-17 07:35 | Outpatient (REF) | payer MEDICARE, MEDICAID, SELFPAY ==
[2023-06-17 08:19] LABS: Cholesterol 215 mg/dL (<200); Glucose Fasting 108 mg/dL (60-99); HDL Cholesterol 61 mg/dL (>40); LDL Cholesterol Calculated 137 mg/dL (<100); Triglycerides 86 mg/dL (<150)
== END 2023-06-17 07:36 | disposition home or self-care (01) ==
LOC: HO.LAB 07:35
PROVIDERS: PCP Internal Medicine; Visit Provider Psychiatry & Neurology Psychiatry
DX: F33.42 Major depressive disorder, recurrent, in full remission (principal)
CPT/HCPCS: 36415; 80061; 82947

== ENCOUNTER 2023-09-08 10:31 | Outpatient (AMB) | payer MEDICARE, MEDICAID, SELFPAY ==
--- NOTE | 2023-09-08 10:34 | MHC.OFFVIS ---
Vital Signs 09/08/23 10:35 Height 5 ft 1 in Weight 170 lb BMI 32.1 Intake Visit Reasons: OV-Right knee injection follow up Intake Note: Silvia is a 73 year old female who presents for a follow up of her Right knee pain. The patient states that she got fairly good relief from the cortisone injection that she was given at her last visit. She did aggravate her knee while walking a lot in [place] on a 3 week vacation. The patient states that over the last week her knee pain has improved significantly. She reports minimal discomfort today. She continues to work out at the gym 3 times per week. 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 Surgical History Hx of BKA History of surgery on arm History of uterine fibroid History of bladder surgery Family History Father Cancer Mother Emphysema lung Brother Suicide Brother Lung cancer Brother COPD (chronic obstructive pulmonary disease) Family/Other FH: mental illness Substance use disorder Social History Household Members: None Housing: House Alcohol intake: former Patient Tobacco Use Status: Former Tobacco user Tobacco use type: Cigarette e-Cigarette/Vaping Use: Never Used Second Hand Smoke Exposure: No Substance Use Type: Marijuana service: No Current occupational status: disabled Cognitive needs: Yes Hearing needs: No Vision needs: No Physical Exam Vital Signs: BMI result Body Mass Index 32.1 Const Other: Well-nourished well-developed very friendly female awake alert and oriented x3 in no acute distress Extrem Other: Bilateral lower extremity examination shows good capillary refill, no skin lesions noted, normal sensation light touch Right knee examination shows a minimal effusion, minimal discomfort with range of motion, mild crepitus with range of motion, no instability Assessment & Plan Assessment & Plan (1) Arthritis of right knee: Code(s): M17.11 - Unilateral primary osteoarthritis, right knee Category: Medical Plan Ms. Zepeda presents with right knee pain due to degenerative joint disease. I had a lengthy discussion with the patient regarding the treatment options. At this point the patient's symptoms are tolerable to her. She will continue with her exercise program. She will follow up with me on an as-needed basis should her symptoms worsen in any way. Feel free to call me at any time should questions regarding her orthopedic management arise. I spent 19 minutes in reviewing the patient's records and imaging studies, seeing the patient and documenting in the medical record. Coding Level of Care Code Est Pt Level 2 (62862) Diagnoses Arthritis of right knee M17.11
[2023-09-08 10:35] VITALS: BMI 32.1
== END 2023-09-08 11:03 | disposition home or self-care (01) ==
PROVIDERS: PCP Internal Medicine; Visit Provider Orthopaedic Surgery
DX: M17.11 Unilateral primary osteoarthritis, right knee (principal)
CPT/HCPCS: 99213

== ENCOUNTER → 2023-09-08 10:31 | Outpatient (BNVA) | payer MEDICARE, MEDICAID, SELFPAY | PROVIDERS: PCP Internal Medicine; Visit Provider Orthopaedic Surgery | DX: M17.11 Unilateral primary osteoarthritis, right knee (principal) | CPT/HCPCS: 99212 ==

== ENCOUNTER 2023-09-15 10:14 | Outpatient (AMB) | payer MEDICARE, MEDICAID, SELFPAY ==
[2023-09-15 10:22] VITALS: BP 142/72; PULSE 68; O2SAT 97; BMI 31.7
--- NOTE | 2023-09-15 10:22 | MHC.OFFVIS ---
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 She tells wonderful stories of her visit. As far as COPD is concerned it has been totally asymptomatic. She has had no acute respiratory infection. 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 In [facility] she had tattooing on the arms mainly for spiritual therapy. She is left below-knee amputee, uses artificial leg, awaiting to get her new limb. 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 Surgical History Hx of BKA History of surgery on arm History of uterine fibroid History of bladder surgery Family History Father Cancer Mother Emphysema lung Brother Suicide Brother Lung cancer Brother COPD (chronic obstructive pulmonary disease) Family/Other FH: mental illness Substance use disorder Social History Household Members: None Housing: House Alcohol intake: former Patient Tobacco Use Status: Former Tobacco user Tobacco use type: Cigarette e-Cigarette/Vaping Use: Never Used Second Hand Smoke Exposure: No Substance Use Type: Marijuana service: No Current occupational status: disabled Cognitive needs: Yes Hearing needs: No Vision needs: No Review of Systems Const All systems reviewed & are unremarkable except as noted in HPI and below Eyes Reports no additional complaints ENT Reports no additional complaints Card Denies chest pain, Denies irregular heart rhythm and Denies leg edema Resp Reports as per HPI GI Reports no additional complaints Reports no additional complaints Musc Reports no additional complaints Skin/Breast Reports system reviewed and no additional complaints, except as documented Neuro Reports no additional complaints Psych Reports anxiety (controlled) and Reports depression (controlled) Endo Reports no additional complaints Ever/Lymph Reports no additional complaints Physical Exam Vital Signs: Last Vital Signs Pulse 68 09/15/23 10:22 BP 142/72 H 09/15/23 10:22 Pulse Ox 97 09/15/23 10:22 Oxygen Delivery Method Room Air 09/15/23 10:22 BMI result Body Mass Index 31.7 Const General: comfortable, no acute distress, alert and awake Orientation/consciousness: patient oriented x3 HEENT Head: Yes normal to inspection General nose exam: No nasal polyps present and No nasal discharge present Face and sinus: Yes sinuses nontender Mouth: oropharynx normal Throat: Yes posterior oropharynx normal Eyes General: appearance normal, both eyes and all related structures Neck Neck: Yes normal visual inspection, Yes no lymphadenopathy, Yes trachea midline and Yes no JVD Thyroid: Thyroid normal Chest Chest palpation & inspection: normal inspection of the chest, normal palpation of entire chest wall and no tenderness Resp Other: Percussion note is resonant, breath sounds are slightly distant, no wheezes rhonchi or crepitations are heard. Cardio Palpation: normal PMI Rate: regular rate Rhythm: regular rhythm Heart sounds: no gallops and no murmurs GI Palpation (GI): Soft to palpation, nontender, No hepatosplenomegaly present and no masses Auscultation: normal bowel sounds Back/Spine/Pelvis Thoracic/Lumbar Spine: thoracic and lumbar spine normal to inspection Skin General skin exam: no rashes or lesions noted Neuro General: patient oriented x3 and no focal motor deficits Cranial nerves: Yes CN's II-XII intact bilaterally Extrem Other: Left leg, artificial. Right leg is fine without any edema . General: Yes normal to inspection, Yes no clubbing, cyanosis or edema and Yes no calf tenderness Psych Appearance: grossly normal, well kempt and other (IN [employer]) Speech and movement: Normal speech and movement present Assessment & Plan Assessment & Plan (1) COPD (chronic obstructive pulmonary disease): Comment: This patient does have past history of COPD. She has not smoked for many many years. Lungs have definitely improved. Spirometry on her last visit showed mild Obstructive Disorder . She has not required to use any bronchodilator inhalers. Code(s): J44.9 - Chronic obstructive pulmonary disease, unspecified Category: Medical Plan: Advised to just keep PROAIR HFA on hand to use 2 puffs PRN . She may come to see me once a year and also need. Medications: Changed From bupropion HCl XL 300 mg PO QAM 30 tabs 0RF 30 days To bupropion HCl XL 150 mg PO QAM Coding Level of Care Code Est Pt Level 3 (69373) Diagnoses COPD (chronic obstructive pulmonary disease) J44.9
== END 2023-09-15 11:16 | disposition home or self-care (01) ==
PROVIDERS: PCP Internal Medicine; Visit Provider Internal Medicine
DX: J44.9 Chronic obstructive pulmonary disease, unspecified (principal)
CPT/HCPCS: 99213

== ENCOUNTER → 2023-09-15 10:14 | Outpatient (BNVA) | payer MEDICARE, MEDICAID, SELFPAY | PROVIDERS: PCP Internal Medicine; Visit Provider Internal Medicine | DX: J44.9 Chronic obstructive pulmonary disease, unspecified (principal); Z79.899 Other long term (current) drug therapy | CPT/HCPCS: 99212 ==

== ENCOUNTER 2023-11-13 09:45 | Outpatient (REF) | payer MEDICARE, SELFPAY ==
[2023-11-13 11:17] LABS: Alanine Aminotransferase 10 U/L (0-31); Albumin Level 3.9 g/dL (3.5-5.0); Alkaline Phosphatase 44 U/L (39-117); Anion Gap 11 (12-20); Aspartate Amino Transferase 16 U/L (5-31); Bilirubin Total 0.3 mg/dL (0.0-1.0); Blood Urea Nitrogen 17 mg/dL (9-16); Calcium 8.9 mg/dL (8.4-10.2); Carbon Dioxide 29 mmol/L (22-29); Chloride 105 mmol/L (96-108); Cholesterol 215 mg/dL (<200); Estimated Glomerular Filt Rate > 60; Glucose Fasting 95 mg/dL (60-99); HDL Cholesterol 59 mg/dL (>40); LDL Cholesterol Calculated 143 mg/dL (<100); Potassium 4.5 mmol/L (3.3-5.1); Sodium 140 mmol/L (135-145); Total Protein 6.7 g/dL (6.5-8.0); Triglycerides 68 mg/dL (<150)
== END 2023-11-13 09:46 | disposition home or self-care (01) ==
LOC: HO.LAB 09:45
PROVIDERS: PCP Internal Medicine; Visit Provider Internal Medicine
DX: E78.5 Hyperlipidemia, unspecified (principal); R26.81 Unsteadiness on feet
CPT/HCPCS: 36415; 80053; 80061

== ENCOUNTER 2023-11-16 12:33 | Outpatient (AMB) | payer MEDICARE, SELFPAY ==
--- NOTE | 2023-11-16 12:39 | A.OFFPC_ITS ---
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 Required: No Accompanied by: Self / Same As Patient Allergies No Known Allergies Allergy (Verified 11/16/23 12:59) Medication List - Last Reconciled 11/16/23 by Lashonda Narayan MD bupropion HCl XL 150 mg PO QAM duloxetine (Cymbalta) 120 mg PO DAILY hepatitis A virus vaccine (PF) 0.5 mL IM ONCE 1 day ibuprofen 800 mg PO Q8H PRN 30 days [left below knee permanent prosthesis K3 As directed] [left below knee prosthetic liners As directed K3] Tobacco use date assessed: 11/16/23 Fall risk assessment: No Falls in past year Last assessed Fall Risk: 11/16/23 Dental Screening Dental Screen Date: 11/16/23 Did you have a dental visit in the last 12 months?: No Did you have a dental problem in the last 6 months where you did not have access to dental care?: No Was dental information given to patient?: Patient has dentist HPI HPI Comments History of Present Illness Details This is a 73-year-old female with COPD, below-knee amputation of left leg, mild major depression and right knee osteoarthritis that comes today for preop evaluation for cataract extraction and intraocular lens implant which is a low risk surgery. Labs were done and were with no significant abnormality. EKG was done showing a new septal infarct and even though the patient denies any chest pain I will repeat EKG. Patient is aware and she is going tomorrow. Occasional shortness of breath on exertion most likely associated to COPD which is follow by pulmonology once a year. She has not required a rescue inhaler in over a month. She is able to walk with prosthesis. Depression stable with medications and follow by Psychiatry. Use ibuprofen as needed for her right knee osteoarthritis. New EKG pending for medical clearance. 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 Surgical History (Updated 11/16/23 @ 13:02 by Lashonda Narayan MD) Hx of BKA History of surgery on arm History of uterine fibroid History of bladder surgery Family History Father Cancer Mother Emphysema lung Brother Suicide Brother Lung cancer Brother COPD (chronic obstructive pulmonary disease) Family/Other FH: mental illness Substance use disorder Social History Household Members: None Housing: House Alcohol intake: former Patient Tobacco Use Status: Former Tobacco user Tobacco use type: Cigarette e-Cigarette/Vaping Use: Never Used Second Hand Smoke Exposure: No Substance Use Type: Marijuana service: No Current occupational status: disabled Cognitive needs: Yes Hearing needs: No Vision needs: No Questionnaire PHQ-9 Over the last 2 weeks, how often have you been bothered by any of the following problems? 1. Little interest or pleasure in doing things: not at all 2. Feeling down, depressed, or hopeless: not at all 3. Trouble falling or staying asleep, or sleeping too much: not at all 4. Feeling tired or having little energy: not at all 5. Poor appetite or overeating: not at all 6. Feeling bad about yourself - or that you are a failure or have let yourself or your family down: not at all 7. Trouble concentrating on things, such as reading the newspaper or watching television: not at all 8. Moving or speaking so slowly that other people could have noticed. Or the opposite - being so fidgety or restless that you have been moving around a lot more than usual: not at all 9. Thoughts that you would be better off or of hurting yourself in some way: not at all Total score: 0 Depression Screening Interpretation: Negative Depression Screening Done: Yes 88107 - PHQ-9 Billing: Yes Source: Developed by Drs. Spencer Shin, Eliza Velásquez, Jaylen Gamez and colleagues, with an educational jorge from [employer]. Thrive Questionnaire Date Thrive assessed: 11/16/23 I am a: Patient What is your living situation today?: I have a steady place to live Within the past 12 months, did the food you bought not last and you didn't have the money to get more?: Never true Within the past 12 months, did you worry whether your food would run out before you got money to buy more?: Never true THRIVE Score: 0 AUDIT C Alcohol Use Questionnaire (AUDIT-C) 1. How often do you have a drink containing alcohol?: Never Total Score: 0 ANGEL LUIS-7 AMB Questionnaire ANGEL LUIS-7 Date ANGEL LUIS - 7 assessed: 11/16/23 Feeling nervous, anxious, or on edge: 0 = Not at all Not being able to stop or control worryin = Not at all Worrying too much about different things: 0 = Not at all Trouble relaxin = Not at all Being so restless that it is hard to sit still: 0 = Not at all Becoming easily annoyed or irritable: 0 = Not at all Feeling afraid as if something awful might happen: 0 = Not at all Total ANGEL LUIS-7 score (0-4 normal; 5-9 mild; 10-14 moderate; 15-21 severe): 0 Source: Developed by Drs. Spencer Shin, Eliza Velásquez, Jaylen Gamez and colleagues, with an educational jorge from [employer]. ANGEL LUIS-7 Assessment Billing ANGEL LUIS-7 Assessment Tool: ANGEL LUIS-7 Assessment 81656 Review of Systems Const All systems reviewed & are unremarkable except as noted in HPI and below Card Denies chest pain at rest, Denies chest pain with activity, Denies edema, Denies irregular heart rhythm, Denies claudication, Denies dyspnea, Denies dyspnea on exertion, Denies orthopnea, Denies paroxysmal nocturnal dyspnea and Denies slow heart rate Resp Denies cough, Denies dyspnea and Denies dyspnea on exertion GI Denies abdominal pain, Denies change in bowel habits, Denies excessive flatus, Denies nausea and Denies vomiting Physical exam (Primary Care) Vital Signs: Last Vital Signs Pulse 68 11/16/23 12:41 BP 130/70 11/16/23 12:41 Pulse Ox 97 11/16/23 12:41 Oxygen Delivery Method Room Air 11/16/23 12:41 BMI result Body Mass Index 31.4 Tobacco/Smoking Status: Tobacco use Status Tobacco use date assessed 11/16/23 11/16/23 12:46 Patient Tobacco Use Status Former Tobacco user 11/16/23 12:40 Tobacco use type Cigarette 11/16/23 12:40 e-Cigarette/Vaping Use Never Used 11/16/23 12:40 PHQ-9: PHQ-9 Score PHQ-9: Total score 0 11/16/23 13:00 Depression Screening Interpretation: Negative Thrive Assessment: Date of Thrive Assessment Date Thrive assessed 11/16/23 11/16/23 12:46 Resp Effort & Inspection: normal respiratory effort Auscultation: clear to auscultation bilaterally Cardio Jugular venous distension: no JVD Rate: regular rate Rhythm: regular rhythm Heart sounds: S1 normal heart sound present and S2 normal heart sound present Extrem Other: Left below-knee amputation walking with prothesis Left lower extremity: knee and lower leg Assessment and Plan Assessment & Plan (1) Preoperative cardiovascular examination: Code(s): Z01.810 - Encounter for preprocedural cardiovascular examination Plan: EKG to be repeated for medical clearance. (2) Mild major depression: Code(s): F32.0 - Major depressive disorder, single episode, mild Plan: Continue bupropion and Cymbalta. Follow-up with psychiatry. (3) COPD (chronic obstructive pulmonary disease): Comment: This patient does have past history of COPD. She has not smoked for many many years. Lungs have definitely improved. Spirometry on her last visit showed mild Obstructive Disorder . She has not required to use any bronchodilator inhalers. Code(s): J44.9 - Chronic obstructive pulmonary disease, unspecified Plan: Follow-up with pulmonology. (4) Acquired absence of left leg below knee: Code(s): Z89.512 - Acquired absence of left leg below knee Plan: Continue using prothesis. (5) Arthritis of right knee: Code(s): M17.11 - Unilateral primary osteoarthritis, right knee Plan: Use ibuprofen as needed. Orders: Orders ECG 12 lead EKG Today Z01.810 - Encounter for preprocedural cardiovascular examination ECG 12 lead EKG Today Z01.810 - Encounter for preprocedural cardiovascular examination Coding Level of Care Code Est Pt Level 4 (02800) Complex EM visit Add On G2211 Diagnoses Preoperative cardiovascular examination Z01.810 Mild major depression F32.0 COPD (chronic obstructive pulmonary disease) J44.9 Acquired absence of left leg below knee Z89.512 Arthritis of right knee M17.11 Additional Codes ANGEL LUIS-7 Assessment Billing - ANGEL LUIS-7 Assessment Tool: ANGEL LUIS-7 Assessment [id number] ([id number]) Time Spent (min) 23
[2023-11-16 12:41] VITALS: BP 130/70; PULSE 68; O2SAT 97; BMI 31.4
== END 2023-11-16 13:13 | disposition home or self-care (01) ==
PROVIDERS: PCP Internal Medicine; Visit Provider Internal Medicine
DX: J44.9 Chronic obstructive pulmonary disease, unspecified (principal); F32.0 Major depressive disorder, single episode, mild; Z89.512 Acquired absence of left leg below knee; Z01.810 Encounter for preprocedural cardiovascular examination; M17.11 Unilateral primary osteoarthritis, right knee
CPT/HCPCS: 99214; G2211

== ENCOUNTER → 2023-11-16 13:42 | Outpatient (REF) | payer MEDICARE, SELFPAY ==
--- NOTE | 2023-11-16 13:52 | ECG_ITS ---
Test Reason : CHECK PTS RHYTHM Blood Pressure : / mmHG Vent. Rate : 068 BPM Atrial Rate : 068 BPM P-R Int : 112 ms QRS Dur : 070 ms QT Int : 406 ms P-R-T Axes : 036 068 071 degrees QTc Int : 431 ms Normal sinus rhythm Septal infarct , age undetermined Abnormal ECG When compared with ECG of 05-AUG-2013 15:25, Premature ventricular complexes are no longer Present Septal infarct is now Present Referred By: Lashonda Narayan Electronically Signed By:Jim Saldivar
== END ==
LOC: HO.CARD 13:42
PROVIDERS: PCP Internal Medicine; Visit Provider Internal Medicine
DX: Z01.810 Encounter for preprocedural cardiovascular examination (principal)
CPT/HCPCS: 93005

== ENCOUNTER → 2023-11-16 13:52 | Outpatient (BNV) | payer MEDICARE, SELFPAY | PROVIDERS: PCP Internal Medicine; Visit Provider Internal Medicine Cardiovascular Disease | DX: J44.9 Chronic obstructive pulmonary disease, unspecified (principal); Z01.810 Encounter for preprocedural cardiovascular examination | CPT/HCPCS: 93010 ==

== ENCOUNTER → 2023-11-17 08:11 | Outpatient (REF) | payer MEDICARE, SELFPAY ==
--- NOTE | 2023-11-17 08:16 | ECG_ITS ---
Test Reason : PRE OP Blood Pressure : / mmHG Vent. Rate : 064 BPM Atrial Rate : 064 BPM P-R Int : 116 ms QRS Dur : 072 ms QT Int : 406 ms P-R-T Axes : 011 041 065 degrees QTc Int : 418 ms Normal sinus rhythm Normal ECG When compared with ECG of 16-NOV-2023 14:00, Criteria for Septal infarct are no longer Present Referred By: Lashonda Narayan Electronically Signed By:Jim Saldivar
== END ==
LOC: HO.CARD 08:11
PROVIDERS: PCP Internal Medicine; Visit Provider Internal Medicine
DX: Z01.810 Encounter for preprocedural cardiovascular examination (principal)
CPT/HCPCS: 93005

== ENCOUNTER → 2023-11-17 08:16 | Outpatient (BNV) | payer MEDICARE, SELFPAY | PROVIDERS: PCP Internal Medicine; Visit Provider Internal Medicine Cardiovascular Disease | DX: R06.02 Shortness of breath (principal); Z01.810 Encounter for preprocedural cardiovascular examination | CPT/HCPCS: 93010 ==

== ENCOUNTER 2023-11-23 09:00 | Day surgery (SDC) | payer MEDICARE, SELFPAY ==
[2023-11-18 07:50] VITALS: BMI 31.4
--- NOTE | 2023-11-23 09:46 | PC.NURSE ---
brought patient into pre-op area and became very fearful and teary eyed. im having a panic attack encouraged patient and panic attack subsided.
[2023-11-23 10:01] VITALS: BP 142/60; PULSE 60; RESP 16; TEMP 36.9; O2SAT 95
[2023-11-23] MEDS: Tetracaine HCl/PF 0.5% Oph Sol 4 ML DROPS 1 DROP EYE-LEFT (10:04)
[2023-11-23] MEDS: Cyclopentolate 1 % Ophth Sol 2 ML DRPBTL 1 DROP EYE-LEFT ×3 (10:05→10:11)
[2023-11-23] MEDS: Ketorolac Tromethamine 0.5% Op 10 ML DROPS 1 DROP EYE-LEFT ×3 (10:06→10:15)
[2023-11-23] MEDS: Tropicamide 1 % Ophth Sol 3 ML BTL 1 DROP EYE-LEFT ×3 (10:06→10:14)
[2023-11-23] MEDS: Phenylephrine HCL 2.5% Oph SoL 2 ML BOTTLE 1 DROP EYE-LEFT ×3 (10:07→10:15)
[2023-11-23] MEDS: Lactated Ringers 500 ML 50 ML IV (10:21)
--- NOTE | 2023-11-23 10:25 | P.CONAN_ITS ---
Documented by User: Staci Hoffman NP 11/19/23 14:27 HPI - Anesthesia Eval Consult details Narrative: 73yo F for Left Cataract Extraction IOL Insertion No previous cataract on record PMFSH Active Problems Active Problems: All Active Problems Preoperative cardiovascular examination (Acute) Arthritis of right knee (Acute) Right knee pain (Acute) Gastrocnemius strain, left (Acute) Knee pain (Acute) Immunization due (Acute) Mild major depression (Acute) Gait instability (Acute) COPD (chronic obstructive pulmonary disease) (Acute) Renal calculi (Acute) Left hip pain (Acute) Acquired absence of left leg below knee (Acute) Past Medical History Medical History (Updated 11/16/23 @ 16:03 by Lashonda Narayan MD) COPD (chronic obstructive pulmonary disease) Renal calculi Left hip pain 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 Family History Family History Father Cancer Mother Emphysema lung Brother Suicide Brother Lung cancer Brother COPD (chronic obstructive pulmonary disease) Family/Other FH: mental illness Substance use disorder Surgical History Surgical History (Updated 11/23/23 @ 09:54 by Huong Adames RN) History of cholecystectomy Hx of BKA History of surgery on arm History of uterine fibroid History of bladder surgery Social History Social History Household Members: None Housing: House Alcohol intake: former Patient Tobacco Use Status: Former Tobacco user Tobacco use type: Cigarette e-Cigarette/Vaping Use: Never Used Second Hand Smoke Exposure: No Use of substances other than those prescribed or required for medical reasons: Yes Substance Use Type: Marijuana Are you DNR?: No Advance Directives: No Advance Directives Information Provided: Yes Advance Directives on File: No Recently lost weight without trying: No Eating poorly because of decreased appetite: No Nutrition Risks: No Nutritional Risk Patient : No : No service: No Current occupational status: disabled Cognitive needs: Yes Hearing needs: No Vision needs: No Meds Allergies Allergy/AdvReac Type Severity Reaction Status Date / Time No Known Allergies Allergy Verified 11/16/23 12:59 Home Medications ?Medication ?Instructions ?Recorded ?Confirmed ?Last Taken ?Type bupropion HCl 300 mg 24 hr tablet, 150 mg PO QAM 09/15/23 11/18/23 Unknown H istory extended release duloxetine 60 mg capsule,delayed 120 mg PO DAILY 09/15/23 11/18/23 Unknown History release (Cymbalta) Exam Height,Weight and Vital Signs: Height 5 ft 1 in Weight 75.296 kg Assessment and Plan Assessment Anesthesia Assessment: Chart Reviewed Documented by User: Dawn Cotton DO 11/23/23 10:28 HPI - Anesthesia Eval Consult details Narrative: 73yo F for Left Cataract Extraction IOL Insertion No previous cataract on record Extremely anxious and had a panic attack in pre[facility] Past Medical History Medical History (Updated 11/16/23 @ 16:03 by Lashonda Naraayn MD) COPD (chronic obstructive pulmonary disease) Renal calculi Left hip pain 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 Family History Family History Father Cancer Mother Emphysema lung Brother Suicide Brother Lung cancer Brother COPD (chronic obstructive pulmonary disease) Family/Other FH: mental illness Substance use disorder Family history of problems with anesthesia: No Surgical History Surgical History (Updated 11/23/23 @ 09:54 by Huong Adames RN) History of cholecystectomy Hx of BKA History of surgery on arm History of uterine fibroid History of bladder surgery History of Problems with Anesthesia: No Social History Social History Household Members: None Housing: House Alcohol intake: former Patient Tobacco Use Status: Former Tobacco user Tobacco use type: Cigarette e-Cigarette/Vaping Use: Never Used Second Hand Smoke Exposure: No Use of substances other than those prescribed or required for medical reasons: Yes Substance Use Type: Marijuana Are you DNR?: No Advance Directives: No Advance Directives Information Provided: Yes Advance Directives on File: No Recently lost weight without trying: No Eating poorly because of decreased appetite: No Nutrition Risks: No Nutritional Risk Patient : No : No service: No Current occupational status: disabled Cognitive needs: Yes Hearing needs: No Vision needs: No Meds Allergies Allergy/AdvReac Type Severity Reaction Status Date / Time No Known Allergies Allergy Verified 11/16/23 12:59 Home Medications ?Medication ?Instructions ?Recorded ?Confirmed ?Last Taken ?Type bupropion HCl 300 mg 24 hr tablet, 150 mg PO QAM 09/15/23 11/18/23 Unknown History extended release duloxetine 60 mg capsule,delayed 120 mg PO DAILY 09/15/23 11/18/23 Unknown History release (Cymbalta) Exam Exam Date and Time: November 23, 2023 1023 Height,Weight and Vital Signs: Height 5 ft 1 in Weight 75.296 kg Vital Signs Temperature 98.5 F 11/23/23 10:01 Pulse Rate 60 11/23/23 10:01 Respiratory Rate 16 11/23/23 10:01 Blood Pressure 142/60 H 11/23/23 10:01 Pulse Oximetry 95 11/23/23 10:01 Oxygen Delivery Method Room Air 11/23/23 10:01 Temperature 98.5 F 11/23/23 10:01 Pulse Rate 60 11/23/23 10:01 Respiratory Rate 16 11/23/23 10:01 Blood Pressure 142/60 H 11/23/23 10:01 Pulse Oximetry 95 11/23/23 10:01 Oxygen Delivery Method Room Air 11/23/23 10:01 Airway Mallampati Class: II TM Dist: >3cm Neck ROM: Full Loose/Missing/Broken Teeth: No (patient denies any loose or broken teeth) Heart: S1S2 Lungs: CTAB Assessment and Plan Assessment Anesthesia Assessment: Anesthesia Plan Discussed and Chart Reviewed Final Anesthetic Review Family History of Problems with Anesthesia: No History of Problems with Anesthesia: No NPO: Yes ASA Class: II Final Preanesthetic Review: No Changes in Pt Med Stat, Meds/Allgs Chart Reviewed, Consent Obtained/Reviewed and Anes Risks/Benef Reviewed Patient Risk: Low Procedure Risk: Low Anesthetic Plan Anesthetic Plan: MAC: and Agree w/ Assess. and Plan Disposition: Standard PACU
--- NOTE | 2023-11-23 10:52 | MHC.SHP ---
Pre-Procedural Eval Section A - 24 Hr Update-Section A only Date of Service: 11/23/23 The patient is an INPATIENT: No Changes since office visit: No Cold of Flu in the past 2 weeks, No New Medical Problems, No Changes in Medication and No Patient answered all questions The patient has been examined within 24 hours of the surgical procedure. The History & Physical has been completed within 30 days and I have reviewed it.: Yes Section B - Complete if H&P > 30 days Chief Complaint: Age-related nuclear cataract, left eye Allergies: Allergies Allergy/AdvReac Type Severity Reaction Status Date / Time No Known Allergies Allergy Verified 11/16/23 12:59 Plan Diagnosis/Plan: Unchanged I have reviewed the history and physical and performed a pertinent physical examination on my patient. No changes have occurred unless specified. Time Spent With Patient Time: Total time managing care of this patient today ____ minutes.
--- NOTE | 2023-11-23 10:52 | HO.PNOPHT ---
Ophthalmology Procedure Procedure Date of Service: 11/23/23 Ophthalmology Viscoelastic: Healon Duet Dual Pack Pro Ophthalmology Lenses: IOL Acrysof MP - MA60AC (23.5) Procedure Notes: PREOPERATIVE DIAGNOSIS: Decreased visual acuity left eye secondary to cataract POSTOPERATIVE DIAGNOSIS: Same PROCEDURE: Left cataract extraction with intraocular lens insertion SURGEON: Elvin Terrell M.D. ANESTHESIA: Topical/MAC ESTIMATED BLOOD LOSS: None COMPLICATIONS: None After obtaining informed consent, the patient was brought to the operation room suite and placed in the supine position. After adequate sedation per anesthesia, topical drops of Tetracaine were given to the left eye. The eye was then prepped and draped in the usual sterile fashion. The operating room microscope was then positioned over the operative eye and a lid speculum placed. A paracentesis was created. Viscoelastic was then instilled into the anterior chamber. A three plane incision was then created temporally, utilizing a 2.85 mm keratome. Capsulotomy forceps were then utilized to create a circular tear capsulotomy. Hydrodissection and hydrodelineation were carried out until adequate mobilization of the nucleus occurred. Phacoemulsification was then utilized to remove the dense central nucleus followed by removal of the cortical material utilizing the automated aspiration irrigation unit. Viscoat elastic was instilled into the posterior capsular bag followed by placement of a posterior chamber intraocular lens without difficulty. The residual Viscoat elastic was then removed utilizing the automated IA machine. The wound was check and found to be watertight. The patient tolerated the procedure well and the lid speculum was removed. Intracameral injection of Vigamox 0.1 mL followed by a subtenon injection of Kenalog-40 0.2 mL were administered. The patient will be seen in the a.m.
[2023-11-23 11:32] VITALS: BP 142/69; PULSE 53; RESP 16; TEMP 36.6; O2SAT 97
== END 2023-11-23 11:38 | disposition home or self-care (01) ==
PROVIDERS: PCP Internal Medicine; Visit Provider Ophthalmology
PROC: (CPT 66985; principal; 2023-11-23 10:50)
DX: H25.12 Age-related nuclear cataract, left eye (principal); H52.4 Presbyopia; H53.002 Unspecified amblyopia, left eye; H18.413 Arcus senilis, bilateral; H11.153 Pinguecula, bilateral; J44.9 Chronic obstructive pulmonary disease, unspecified; F32.0 Major depressive disorder, single episode, mild; M17.11 Unilateral primary osteoarthritis, right knee; Z89.512 Acquired absence of left leg below knee; Z79.1 Long term (current) use of non-steroidal anti-inflammatories (NSAID); Z79.899 Other long term (current) drug therapy; Z87.891 Personal history of nicotine dependence; Z98.890 Other specified postprocedural states
CPT/HCPCS: 66984; J2250; J3010; J3301; V2630

== ENCOUNTER 2023-12-07 09:10 | Day surgery (SDC) | payer MEDICARE, SELFPAY ==
[2023-11-18 07:54] VITALS: BMI 31.4
--- NOTE | 2023-12-03 13:50 | HO.ANESPROP2 ---
Documented by User: Staci Hoffman NP 12/03/23 13:51 HPI - Anesthesia Eval Consult details Narrative: 73yo F for Right Cataract Extraction IOL Insertion Left eye 11/23/23: Fent 50, Midaz 2 PMFSH Active Problems Active Problems: All Active Problems Preoperative cardiovascular examination (Acute) Arthritis of right knee (Acute) Right knee pain (Acute) Gastrocnemius strain, left (Acute) Knee pain (Acute) Immunization due (Acute) Mild major depression (Acute) Gait instability (Acute) COPD (chronic obstructive pulmonary disease) (Acute) Renal calculi (Acute) Left hip pain (Acute) Acquired absence of left leg below knee (Acute) Past Medical History Medical History COPD (chronic obstructive pulmonary disease) Renal calculi Left hip pain 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 Family History Family History Father Cancer Mother Emphysema lung Brother Suicide Brother Lung cancer Brother COPD (chronic obstructive pulmonary disease) Family/Other FH: mental illness Substance use disorder Family history of problems with anesthesia: No Surgical History Surgical History History of cholecystectomy Hx of BKA History of surgery on arm History of uterine fibroid History of bladder surgery History of Problems with Anesthesia: No Social History Social History Household Members: None Housing: House Alcohol intake: former Patient Tobacco Use Status: Former Tobacco user Tobacco use type: Cigarette e-Cigarette/Vaping Use: Never Used Second Hand Smoke Exposure: No Use of substances other than those prescribed or required for medical reasons: Yes Substance Use Type: Marijuana Are you DNR?: No Advance Directives: No Advance Directives Information Provided: Yes Advance Directives on File: No Recently lost weight without trying: No Eating poorly because of decreased appetite: No Nutrition Risks: No Nutritional Risk Patient : No : No service: No Current occupational status: disabled Cognitive needs: Yes Hearing needs: No Vision needs: No Meds Allergies Allergy/AdvReac Type Severity Reaction Status Date / Time No Known Allergies Allergy Verified 12/07/23 11:03 Home Medications ?Medication ?Instructions ?Recorded ?Confirmed ?Last Taken ?Type bupropion HCl 300 mg 24 hr tablet, 150 mg PO QAM 09/15/23 11/18/23 12/07/23 History extended release duloxetine 60 mg capsule,delayed 120 mg PO DAILY 09/15/23 11/18/23 12/07/23 History release (Cymbalta) Exam Height,Weight and Vital Signs: Height 5 ft 1 in Weight 75.296 kg Assessment and Plan Assessment Anesthesia Assessment: Chart Reviewed Final Anesthetic Review Family History of Problems with Anesthesia: No History of Problems with Anesthesia: No Documented by User: Cassy Mccauley MD 12/07/23 11:04 [facility] Past Medical History Medical History COPD (chronic obstructive pulmonary disease) Renal calculi Left hip pain 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 Family History Family History Father Cancer Mother Emphysema lung Brother Suicide Brother Lung cancer Brother COPD (chronic obstructive pulmonary disease) Family/Other FH: mental illness Substance use disorder Surgical History Surgical History History of cholecystectomy Hx of BKA History of surgery on arm History of uterine fibroid History of bladder surgery Social History Social History Household Members: None Housing: House Alcohol intake: former Patient Tobacco Use Status: Former Tobacco user Tobacco use type: Cigarette e-Cigarette/Vaping Use: Never Used Second Hand Smoke Exposure: No Use of substances other than those prescribed or required for medical reasons: Yes Substance Use Type: Marijuana Are you DNR?: No Advance Directives: No Advance Directives Information Provided: Yes Advance Directives on File: No Recently lost weight without trying: No Eating poorly because of decreased appetite: No Nutrition Risks: No Nutritional Risk Patient : No : No service: No Current occupational status: disabled Cognitive needs: Yes Hearing needs: No Vision needs: No Meds Allergies Allergy/AdvReac Type Severity Reaction Status Date / Time No Known Allergies Allergy Verified 12/07/23 11:03 Home Medications ?Medication ?Instructions ?Recorded ?Confirmed ?Last Taken ?Type bupropion HCl 300 mg 24 hr tablet, 150 mg PO QAM 09/15/23 11/18/23 12/07/23 History extended release duloxetine 60 mg capsule,delayed 120 mg PO DAILY 09/15/23 11/18/23 12/07/23 History release (Cymbalta) Exam Airway Mallampati Class: II TM Dist: >3cm Neck ROM: Full Heart: rrr Lungs: cta Assessment and Plan Assessment Anesthesia Assessment: Anesthesia Plan Discussed Final Anesthetic Review NPO: Yes ASA Class: III Final Preanesthetic Review: No Changes in Pt Med Stat, Meds/Allgs Chart Reviewed, Consent Obtained/Reviewed and Anes Risks/Benef Reviewed Patient Risk: Intermediate Procedure Risk: Low Anesthetic Plan Anesthetic Plan: MAC: Disposition: Standard PACU
[2023-12-07 10:59] VITALS: BP 171/62; PULSE 52; RESP 18; TEMP 36.3; O2SAT 95; BMI 31.2
[2023-12-07] MEDS: Lactated Ringers 500 ML 50 ML IV (11:17)
[2023-12-07] MEDS: Tetracaine HCl/PF 0.5% Oph Sol 4 ML DROPS 1 DROP EYE-RIGHT (11:17)
[2023-12-07] MEDS: Ketorolac Tromethamine 0.5% Op 10 ML DROPS 1 DROP EYE-RIGHT ×3 (11:17→11:23)
[2023-12-07] MEDS: Tropicamide 1 % Ophth Sol 3 ML BTL 1 DROP EYE-RIGHT ×3 (11:17→11:22)
[2023-12-07] MEDS: Cyclopentolate 1 % Ophth Sol 2 ML DRPBTL 1 DROP EYE-RIGHT ×3 (11:18→11:23)
[2023-12-07] MEDS: Phenylephrine HCL 2.5% Oph SoL 2 ML BOTTLE 1 DROP EYE-RIGHT ×3 (11:18→11:23)
--- NOTE | 2023-12-07 11:37 | MHC.SHP ---
Pre-Procedural Eval Section A - 24 Hr Update-Section A only Date of Service: 12/07/23 The patient is an INPATIENT: No Changes since office visit: No Cold of Flu in the past 2 weeks, No New Medical Problems, No Changes in Medication and No Patient answered all questions The patient has been examined within 24 hours of the surgical procedure. The History & Physical has been completed within 30 days and I have reviewed it.: Yes Section B - Complete if H&P > 30 days Chief Complaint: Age-related nuclear cataract, right eye Allergies: Allergies Allergy/AdvReac Type Severity Reaction Status Date / Time No Known Allergies Allergy Verified 12/07/23 11:03 Plan Diagnosis/Plan: Unchanged I have reviewed the history and physical and performed a pertinent physical examination on my patient. No changes have occurred unless specified. Time Spent With Patient Time: Total time managing care of this patient today ____ minutes.
--- NOTE | 2023-12-07 11:38 | P.PCNO_ITS ---
Ophthalmology Procedure Procedure Date of Service: 12/07/23 Ophthalmology Viscoelastic: Healon Duet Dual Pack Pro Ophthalmology Lenses: IOL Acrysof MP - [id number] (23) Procedure Notes: PREOPERATIVE DIAGNOSIS: Decreased visual acuity right eye secondary to cataract POSTOPERATIVE DIAGNOSIS: Same PROCEDURE: Right cataract extraction with intraocular lens insertion SURGEON: Elvin Terrell M.D. ANESTHESIA: Topical/MAC ESTIMATED BLOOD LOSS: None COMPLICATIONS: None After obtaining informed consent, the patient was brought to the operating room suite and placed in the supine position. After adequate sedation per anesthesia, topical drops of Tetracaine were given to the right eye. The eye was then prepped and draped in the usual sterile fashion. The operating room microscope was then positioned over the operative eye and a lid speculum placed. A paracentesis was created. Viscoelastic was then instilled into the anterior chamber. A three plane incision was then created temporally, utilizing a 2.85 mm keratome. Capsulotomy forceps were then utilized to create a circular tear capsulotomy. Hydrodissection and hydrodelineation were carried out until adequate mobilization of the nucleus occurred. Phacoemulsification was then utilized to remove the dense central nucl eus followed by removal of the cortical material utilizing the automated aspiration irrigation unit. Viscoelastic was instilled into the posterior capsular bag followed by placement of a posterior chamber intraocular lens without difficulty. The residual Viscoelastic was then removed utilizing the automated IA machine. The wound was checked and found to be watertight. The patient tolerated the procedure well and the lid speculum was removed. Intracameral injection of Vigamox 0.1 mL followed by a subtenon injection of Kenalog-40 0.2 mL were administered. The patient will be seen in the a.m.
[2023-12-07 12:04] VITALS: BP 142/56; PULSE 54; RESP 16; TEMP 36.3; O2SAT 96
== END 2023-12-07 12:17 | disposition home or self-care (01) ==
PROVIDERS: PCP Internal Medicine; Visit Provider Ophthalmology
PROC: (CPT 66985; principal; 2023-12-07 11:50)
DX: H25.11 Age-related nuclear cataract, right eye (principal); H52.4 Presbyopia; H53.002 Unspecified amblyopia, left eye; H18.413 Arcus senilis, bilateral; H11.153 Pinguecula, bilateral; J44.9 Chronic obstructive pulmonary disease, unspecified; F32.0 Major depressive disorder, single episode, mild; Z79.899 Other long term (current) drug therapy; Z89.512 Acquired absence of left leg below knee; Z87.891 Personal history of nicotine dependence
CPT/HCPCS: 66984; J2250; J3010; J3301; V2630

== ENCOUNTER 2024-05-23 14:24 | Outpatient (AMB) | payer MEDICARE, SELFPAY ==
--- NOTE | 2024-05-23 14:37 | MHC.PC.OV ---
Intake Visit Reasons: AWV Initial Allergies No Known Allergies Allergy (Verified 12/07/23 11:03) Tobacco use date assessed: 11/16/23 Dental Screening Dental Screen Date: 11/16/23 PFSH Medical History COPD (chronic obstructive pulmonary disease) Renal calculi Left hip pain 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 Surgical History History of cholecystectomy Hx of BKA History of surgery on arm History of uterine fibroid History of bladder surgery Family History Father Cancer Mother Emphysema lung Brother Suicide Brother Lung cancer Brother COPD (chronic obstructive pulmonary disease) Family/Other FH: mental illness Substance use disorder Social History Household Members: None Housing: House Alcohol intake: former Patient Tobacco Use Status: Former Tobacco user Tobacco use type: Cigarette e-Cigarette/Vaping Use: Never Used Second Hand Smoke Exposure: No Substance Use Type: Marijuana service: No Current occupational status: disabled Cognitive needs: Yes Hearing needs: No Vision needs: No Questionnaire Thrive Questionnaire Date Thrive assessed: 11/16/23 AUDIT C Alcohol Use Questionnaire (AUDIT-C) 3. How often do you have six or more drinks on one occasion?: Never Total Score: 0 ANGEL LUIS-7 AMB Questionnaire ANGEL LUIS-7 Date ANGEL LUIS - 7 assessed: 11/16/23 Source: Developed by Drs. Spencer Shin, Eliza Velásquez, Jaylen Gamez and colleagues, with an educational jorge from [employer]. Physical exam (Primary Care) Tobacco/Smoking Status: Tobacco use Status Tobacco use date assessed 11/16/23 11/16/23 12:46 Patient Tobacco Use Status Former Tobacco user 12/07/23 12:02 Tobacco use type Cigarette 11/16/23 12:40 e-Cigarette/Vaping Use Never Used 11/16/23 12:40 Thrive Assessment: Date of Thrive Assessment Date Thrive assessed 11/16/23 11/16/23 12:46 Coding
[2024-05-23 14:39] VITALS: BP 122/70; BMI 32.3
--- NOTE | 2024-05-23 14:42 | AM.OFFVISMDC ---
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: No Accompanied by: Self / Same As Patient Allergies No Known Allergies Allergy (Verified 05/23/24 14:51) Medication List - Last Reconciled 05/23/24 by Lashonda Naraayn MD aripiprazole 2 mg PO QAM bupropion HCl XL 150 mg PO QAM duloxetine (Cymbalta) 120 mg PO DAILY hepatitis A virus vaccine (PF) 0.5 mL IM ONCE 1 day ibuprofen 800 mg PO Q8H PRN 30 days [left below knee permanent prosthesis K3 As directed] [left below knee prosthetic liners As directed K3] valacyclovir 1,000 mg PO Q8H 7 days HPI HPI Comments History of Present Illness Details The patient is a 73-year-old female presenting with a Medicare annual wellness exam. This visit is noted to be her first time undergoing this type of examination. During the conversation, it was mentioned that she received a pneumonia vaccine last year, in 2023, indicating an interest in preventative care and vaccination history. There were no specific chronic or acute health issues explicitly discussed. The focus of the encounter appears to have been on preventative measures and the wellness aspect of the Medicare exam. PPP handed to patient. She declines mammogram and colonoscopy. Also declines DEXA scan. Alpha of care reviewed. 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 Surgical History History of cholecystectomy Hx of BKA History of surgery on arm History of uterine fibroid History of bladder surgery Family History Father Cancer Mother Emphysema lung Brother Suicide Brother Lung cancer Brother COPD (chronic obstructive pulmonary disease) Family/Other FH: mental illness Substance use disorder Social History Household Members: None Housing: House Alcohol intake: former Patient Tobacco Use Status: Former Tobacco user Tobacco use type: Cigarette e-Cigarette/Vaping Use: Never Used Second Hand Smoke Exposure: No Substance Use Type: Marijuana service: No Current occupational status: disabled Cognitive needs: Yes Hearing needs: No Vision needs: No Questionnaire Medicare Wellness Checkup What [age] What gender do you identify with?: female During the past 4 weeks, how much have you been bothered by emotional problems such as feeling anxious, depressed, irritable, sad or downhearted, and blue?: moderately During the past 4 weeks, has your physical & emotional health limited your social activities with family, friends, neighbors, or groups?: not at all During the past 4 weeks, how much bodily pain have you generally had?: severe pain During the past 4 weeks, was someone available to help you if you needed & wanted help?: yes, as much as I wanted During the past 4 weeks, what was the hardest physical activity you could do for at least 2 minutes?: heavy Can you get to places out of walking distance without help? (For eg., can you travel alone on buses, taxis or drive your car?): Yes Can you go shopping for groceries or clothes without someone's help?: Yes Can you prepare your own meals?: Yes Can you do your housework without help?: Yes Can you handle your own money without help?: Yes During the past 4 weeks, how would you rate your health in general?: excellent During the past 4 weeks how have things been going for you?: very well; could hardly better Are you having difficulties driving your car?: no Do you always fasten your seat belt when you are in a car?: yes, usually During past 4 weeks, have you been bothered by the following: never: Sexual problems?, Trouble eating well?, Teeth or denture problems? and Problems using the telephone?, seldom: Falling or dizzy when standing up and sometimes: Tiredness or fatigue? Have you fallen 2 or more times in the past year?: No Are you afraid of falling?: No Are you a smoker?: no During the past 4 weeks, how many drinks of wine, beer, or other alcoholic beverages did you have?: no alcohol at all Do you exercise for about 20 minutes 3 or more times a week?: yes, most of the time Have you been given information to help with the following?: no: Hazards in your house that might hurt you? and no: Keeping track of your medications? How often do you have trouble taking medicines the way you have been told to take them?: I always take medicine as prescribed How confident are you that you can control & manage most of your health problems?: very confident What is your race?: White Mini Mental State Exam (MMSE) Orientation What is the (year) (season) (date) (day) (month)?: year, season, date, day and month Where are we (state) (county) (town or city) (hospital) (floor)?: state, county, town or city, hospital/clinic and floor Registration Name of 3 unrelated objects clearly and slowly, then ask patient to repeat all 3 of them. (1st repeat determines score. Make sure they can repeat all three): object 1, object 2 and object 3 Attention & Calculation (CHOOSE ONE) Spell WORLD backwards (DLROW): 5 letters Recall Ask patient to repeat the 3 items from question #3.: object 1, object 2 and object 3 Language Show patient a wristwatch & ask what it is. Repeat for pencil.: watch and pencil Ask the patient to repeat the phrase 'No ifs, ands, or buts' after you.: correct Ask the patient to 'take a piece of paper with their right hand' 'fold paper in half' 'place paper on floor': take paper in right hand, fold paper in half and place paper on floor Print the sentence 'CLOSE YOUR EYES' on a piece. If patient actually closes eyes then score.: followed written direction Give patient a blank piece of paper & ask to write a sentence. Score if it contains a noun & verb.: sentence contains subject and verb Ask patient to copy figure of intersecting pentagons exactly. Score if all 10 angles & 2 intersects are included.: all 10 angles present & 2 are intersected Score Score: 30 Activity of Daily Living Bathing - sponge bath, tub bath or shower: receives no assistance (gets in/out by self, if usual bathing means Dressing - getting clothes from closets & drawers, including inner/outer garments & fasteners.: gets clothes & gets completely dressed without help Transfer: moves in & out of bed and chair without help (may use support object) Continence: has occasional 'accidents' Feeding: feeds self without help Total Score: 0 Information obtained from: patient Using telephone: independent Traveling: independent Shopping: independent Preparing meals: independent Housework: needs assistance Taking medicine: needs assistance Managing money: needs assistance PHQ-9 Over the last 2 weeks, how often have you been bothered by any of the following problems? 1. Little interest or pleasure in doing things: not at all 2. Feeling down, depressed, or hopeless: not at all 3. Trouble falling or staying asleep, or sleeping too much: not at all 4. Feeling tired or having little energy: not at all 5. Poor appetite or overeating: not at all 6. Feeling bad about yourself - or that you are a failure or have let yourself or your family down: not at all 7. Trouble concentrating on things, such as reading the newspaper or watching television: not at all 8. Moving or speaking so slowly that other people could have noticed. Or the opposite - being so fidgety or restless that you have been moving around a lot more than usual: not at all 9. Thoughts that you would be better off or of hurting yourself in some way: not at all Total score: 0 Depression Screening Interpretation: Negative Depression Screening Done: Yes 30525 - PHQ-9 Billing: Yes Source: Developed by Drs. Spencer Shin, Eliza Velásquez, Jaylen Gamez and colleagues, with an educational jorge from [employer]. Fall Risk Assessment Fall Risk Assessment Fall risk assessment: No Falls in past year AUDIT C Alcohol Use Questionnaire (AUDIT-C) 1. How often do you have a drink containing alcohol?: Never 3. How often do you have six or more drinks on one occasion?: Never Total Score: 0 Score Reviewed/Action Taken: No ANGEL LUIS-7 AMB Questionnaire ANGEL LUIS-7 Date ANGEL LUIS - 7 assessed: 05/23/24 Feeling nervous, anxious, or on edge: 0 = Not at all Not being able to stop or control worryin = Not at all Worrying too much about different things: 0 = Not at all Trouble relaxin = Not at all Being so restless that it is hard to sit still: 0 = Not at all Becoming easily annoyed or irritable: 0 = Not at all Feeling afraid as if something awful might happen: 0 = Not at all Total ANGEL LUIS-7 score (0-4 normal; 5-9 mild; 10-14 moderate; 15-21 severe): 0 Source: Developed by Drs. Spencer Shin, Eliza Velásquez, Jaylen Gamez and colleagues, with an educational jorge from [employer]. ANGEL LUIS-7 Assessment Billing ANGEL LUIS-7 Assessment Tool: ANGEL LUIS-7 Assessment 88280 Thrive Questionnaire Date Thrive assessed: 05/23/24 I am a: Patient What is your living situation today?: I have a steady place to live Within the past 12 months, did the food you bought not last and you didn't have the money to get more?: Never true Within the past 12 months, did you worry whether your food would run out before you got money to buy more?: Never true Do you have trouble paying for medicines?: No Do you have trouble getting transportation to medical appointments?: No Do you have trouble paying your heating and electricity bill?: No Do you have trouble taking care of your child, family member or friend?: No Do you have trouble with day-to-day activities such as bathing, preparing meals, shopping, managing finances, etc.?: No Are you currently unemployed and looking for a job?: No Are you interested in more education?: No Please select the resources that you would like help with: None Currently or been in a relationship where the following occur: No concerns reported THRIVE Score: 0 Review of Systems Const All systems reviewed & are unremarkable except as noted in HPI and below Card Denies chest pain at rest, Denies chest pain with activity, Denies edema, Denies irregular heart rhythm, Denies claudication, Denies dyspnea, Denies dyspnea on exertion, Denies orthopnea, Denies paroxysmal nocturnal dyspnea and Denies slow heart rate Resp Denies cough, Denies dyspnea and Denies dyspnea on exertion GI Denies abdominal pain, Denies change in bowel habits, Denies excessive flatus, Denies nausea and Denies vomiting Physical Exam Vital Signs: Last Vital Signs BP 122/70 05/23/24 14:39 BMI result Body Mass Index 32.3 Const Orientation/consciousness: patient oriented x3 HEENT Ears: hearing grossly normal bilaterally and external ears normal Resp Effort & Inspection: normal respiratory effort Auscultation: clear to auscultation bilaterally Cardio Jugular venous distension: no JVD Rate: regular rate Rhythm: regular rhythm Heart sounds: S1 normal heart sound present and S2 normal heart sound present Neuro General: patient oriented x3 and no focal motor deficits Romberg Test: Negative Extrem Other: left below knee amputation walking with prothesis. Psych Appearance: grossly normal Office Procedures Flu Questionnaire Does the patient have a severe egg allergy?: No Immunizations Fluarix Triv [id number] (PF) 45 mcg (15 mcg x 3)/0.5 mL IM syringe Performing Provider: Lashonda Narayan MD Performing Location: [facility] [facility] Documented (not given) by: ZENON He on 05/23/24 14:50 Reason Not Given: Patient Refused Assessment & Plan Assessment & Plan (1) Encounter for Medicare annual wellness exam: Code(s): Z00.00 - Encounter for general adult medical examination without abnormal findings (2) COPD (chronic obstructive pulmonary disease): Comment: This patient does have past history of COPD. She has not smoked for many many years. Lungs have definitely improved. Spirometry on her last visit showed mild Obstructive Disorder . She has not required to use any bronchodilator inhalers. Code(s): J44.9 - Chronic obstructive pulmonary disease, unspecified (3) Acquired absence of left leg below knee: Code(s): Z89.512 - Acquired absence of left leg below knee (4) Mild major depression: Code(s): F32.0 - Major depressive disorder, single episode, mild Plan - Continue with health maintenance and preventative care measures as per Medicare wellness exam requirements. Patient was informed and verbally consented to the use of an ambient scribe for clinic note documentation during this visit. During the visit, I discussed the importance of continuing with preventative care and vaccinations, such as the pneumonia vaccine which the patient received last year. There was emphasis on maintaining regular annual wellness exams as part of her Medicare benefits. Orders: Orders Influenza [id number] Immunization Today Z23 - Encounter for immunization Lipid Panel Today E78.5 - Hyperlipidemia, unspecified Comprehensive [place]. Panel Fast Today J44.9 - Chronic obstructive pulmonary disease, unspecified Patient Instructions: - Ensure to attend all scheduled wellness exams as part of Medicare benefits. - Continue preventative measures, including vaccinations, as advised. Quality Reporting (2019) Fall Risk Screening ([facility] 139) Fall risk assessment: No Falls in past year Depression/Bipolar (159/160/161/177) PHQ-9: Total score: 0 Coding Level of Care Code Medicare First (G0438) Diagnoses Encounter for Medicare annual wellness exam Z00.00 COPD (chronic obstructive pulmonary disease) J44.9 Acquired absence of left leg below knee Z89.512 Mild major depression F32.0 CPT Codes Advance Care Planning - Time spent: 1-15 minutes, on File ([id number]) Additional Codes ANGEL LUIS-7 Assessment Billing - ANGEL LUIS-7 Assessment Tool: ANGEL LUIS-7 Assessment 14869 ([id number]) PHQ-9 - 90847 - PHQ-9 Billing: Yes ([id number]) Time Spent (min) 35 Advance Care Planning Advance Care Planning discussion: Exists, not on file Date of discussion: 05/23/24 Who was present: patient and me Forms completed: Health Care Proxy Time spent: 1-15 minutes, on File Actual minutes spent: 2
--- OUTSIDE RECORDS SUMMARY | 2024-05-23 18:17 | XMS_ITS | Continuity of Care Document ---
Author Organization [place] - [facility], [facility] Address [address] [place] [address] Care Team Providers Care Director Of Assisted Living Name Role Phone BLADE WEST Primary Care Provider Assessment No assessment recorded. Plan of Treatment Reminders Order Date Submit Date Provider Last Modified By Organization Details Last Modified Time Details Appointments Establish ed 10 2024 08:20A M ZARA HERNANDEZ MD Not available Not available Not available Lab None recorded. Referral None recorded. Procedures None recorded. Surgeries None recorded. Imaging None recorded. Medication Orders None recorded. Patient TargetsNo targets recorded. Patient InstructionsNo instructions recorded. Reason for Referral None Reported. Problems Name Problem SNOMED Code Status Onset Date Resolution Date Notes Provider Name and Address Organization Details Recorded Time Chronic mycotic otitis externa 186813119 Active 2013 Chronic mycotic otitis externa; Location : left CMS Risk: moderate risk CMS Treatmen t: new problem (to examiner ): addition al workup planned Note: Date Diagnose d: 04/27/20 14 3:49 PM (380.15) Not Available [facility] 4 02:53:52 Bilatera l disorder of Eustachi an tubes 53174312182 61875 Active 2017 Other specifie d disorder s of Eustachi an tube, bilatera l; Note: Date Diagnose d: 8 9:56 AM (H69.83) Not Available [facility] 4 02:53:51 Disorder of right Eustachi an tube 62941332401 33048 Active 2016 Other specifie d disorder s of Eustachi an tube, right ear; Note: Date Diagnose d: 10/10/2016 3:51 PM (H69.81) Not Available [facility] 4 02:53:47 Impacted cerumen in left ear 67721074855 Completed 201612/11/2023 Impacted cerumen, left ear; Note: Date Diagnose d: 7 2:26 PM (H61.22) Not Available [facility] 4 02:53:50 Bilatera l diffuse otitis externa 25985799100 Completed 202112/11/2023 Diffuse otitis externa, bilatera l; Note: Date Diagnose d: 2 10:52 AM (H60.313 ) Not Available [facility] 4 02:53:51 Sensorin eural hearing loss in left ear 91548005166 109 Active 2017 Sensorin eural hearing loss, unilater al, left ear, with restrict ed hearing on the contrala teral side; Note: Date Diagnose d: 8 10:54 AM (H90.A22 ) Not Available [facility] 4 02:53:49 Mixed conducti ve and sensorin eural hearing loss of right ear 62069771275 105 Active 2017 Mixed conducti ve and sensorin eural hearing loss, unilater al, right ear with restrict ed hearing on the contrala teral side; Note: Date Diagnose d: 8 10:54 AM (H90.A31 ) Not Available [facility] 4 02:53:50 Superfic ial mycosis 056251387 Completed 202112/11/2023 Other specifie d superfic ial mycoses; Location : left Not e: Date Diagnose d: 2 10:37 AM (B36.8) Not Available [facility] 4 02:53:50 Marginal perforat ion of tympanic membrane 87146879 Active 2016 Other marginal perforat ions of tympanic membrane , right ear; Note: Date Diagnose d: 7 2:26 PM (H72.2X1 ) Not [facility] 4 02:53:52 Otorrhea of bilatera l ears 15411074503 05085 Completed 202112/11/2023 Otorrhea , bilatera l; Note: Date Diagnose d: 08/16/2021 10:58 AM (H92.13) Not Available [facility] 4 02:53:52 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 Active 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, unspecif ied as to involvem ent; Note: Date Diagnose d: 4 12:06 PM (385.10) ; Start Date : 03/16/20 14 Adhes agustín middle ear disease, bilatera l; Note: Changed from H74.11 to H74.13 (11/27/19 18 9:58 AM) , Date Diagnose d: 10/10/2016 3:50 PM (H74.11) Not Available [facility] 4 02:53:48 Candidal otitis externa 78595382 Active 2022 Candidal otitis externa; Location : left Not e: Date Diagnose d: 04/07/20 23 11:21 AM (B37.84) Candid al otitis externa; Note: Date Diagnose d: 3 2:52 PM (B37.84) ; Start Date : 01/06/20 23 [facility] otitis externa; Location : left Not e: Date Diagnose d: 04/29/20 17 1:35 PM (B37.84) ; Start Date : 04/29/20 17 Not Available [facility] 4 02:53:51 Otorrhea of right ear 83574008739 00018 Completed 202012/11/2023 Otorrhea , right ear; Note: Date Diagnose d: 02/27/20 21 11:17 AM (H92.11) Otorrh ea, right ear; Note: Date Diagnose d: 0 3:09 PM (H92.11) ; Start Date : 03/13/20 20 Otorr hea, right ear; Note: Date Diagnose d: 9 1:03 PM (H92.11) ; Start Date : 12/09/19 19 Otorr hea, right ear; Note: Date Diagnose d: 10/10/2016 3:49 PM (H92.11) ; Start Date : 10/11/19 17 ZARA HERNANDEZ MD [address] [facility],[place] [address], [place], [address] , [place] - [facility] 4 08:48:24 Otorrhea of bilatera l ears 41910435285 64176 Active 2023 Otorrhea , bilatera l; Note: Date Diagnose d: 08/16/2021 10:58 AM (H92.13) Note: Date Diagnose d: 08/16/2021 10:58 AM (H92.13) ZARA HERNANDEZ MD [address] [place] [address], [place], [address] , [facility] - [facility] 4 11:08:28 Dysfunct ion of eustachi an tube 20848453 Active 2013 Eustachi an tube dysfunct ion; Note: Date Diagnose d: 4 12:06 PM (381.81) Not Available [facility] 4 02:53:47 Otorrhea of left ear 50464253138 98361 Active 2022 Otorrhea , left ear; Note: Date Diagnose d: 3 2:52 PM (H92.12) Otorrh ea, left ear; Note: Date Diagnose d: 04/09/20 21 2:05 PM (H92.12) ; Start Date : 04/09/20 21 Otorr hea, left ear; Note: Date Diagnose d: 04/29/20 17 1:35 PM (H92.12) ; Start Date : 04/29/20 17 Not Available [facility] 4 02:53:49 Infectiv e otitis externa of right ear 95342482999 89284 Active 2022 Other infectiv e otitis externa, right ear; Location : right No te: Date Diagnose d: 04/07/20 23 11:20 AM (H60.391 ) Not Available [facility] 4 02:53:51 Bilatera l earache 001060651 Active 2023 ELIEZER RIVERO PA-C [address] [place] [address], [place], [address] , [facility] 4 11:36:29 Otorrhea of right ear 46066818589 76427 Active 2023 Otorrhea , right ear; Note: Date Diagnose d: 02/27/20 21 11:17 AM (H92.11) Otorrh ea, right ear; Note: Date Diagnose d: 0 3:09 PM (H92.11) ; Start Date : 03/13/20 20 Otorr hea, right ear; Note: Date Diagnose d: 9 1:03 PM (H92.11) ; Start Date : 12/09/19 19 Otorr hea, right ear; Note: Date Diagnose d: 10/10/2016 3:49 PM (H92.11) ; Start Date : 10/11/19 17 ZARA HERNANDEZ MD [address] [place] [address], [place], [address] , [facility] 4 08:48:24 Benign paroxysm al position al vertigo 751009931 Active 2023 ZARA HERNANDEZ MD [address] [place] [address], [place], [address] , [facility] [place] 4 08:50:34 Benign paroxysm al position al vertigo 975475219 Active 2023 ZARA HERNANDEZ MD [address] [place] [address], [place], [address] , [facility] 4 08:51:06 Marginal perforat ion of tympanic membrane 29687325 Active 2023 ZARA HERNANDEZ MD [address] [place] [address], [place], [address] , [facility] 4 08:57:52 Problem Notes None recorded. Procedures Surgical History Date Name Laterality Status Provider Name and Address Organization Details Recorded Time 04/26/20 24 Debridement of Ear canal right completed ZARA HERNANDEZ MD [address] [facility],[place] [address], [place], [address], [place] - [facility] 04/26/2024 08:48:18 11/03/19 24 Cerumen removal with microscope bilateral completed ZARA HERNANDEZ MD [address] [facility], [place], [address], [place] - [facility] 11/03/2023 11:14:29 total replacement of hip completed Blade Davis [place] - [facility] 11/03/2023 10:35:22 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 Procedure Notes None recorded. Medical Equipment None Reported. Medications Name Sig Start Date Stop Date Status Note LastModified by Organization Details LastModified Time bupropion HCl SR 150 mg tablet,12 hr sustained -release 03/13 completed Medicati on ID: [id number] D uration Value: 30 Brand Name: bupropio n HCl Send Method: E-Prescr ibed Sub s Allowed: subs OK Speci al Instruct ion: TAKE 1 TABLET BY MOUTH EVERY MORNING Medicati onGeneri cName: bupropio n HCl Not Available Not Available Not Available azithromy priscilla 250 mg tablet TAKE 2 TABLETS BY MOUTH ON THE FIRST DAY, THEN 1 TABLET BY MOUTH FOR THE NEXT 4 DAYS 11/02 completed Not Available Not Available Not Available ibuprofen 800 mg tablet TAKE ONE TABLET BY MOUTH EVERY 8 HOURS NEEDED FOR PAIN active Not Available Not Available No t Available sulfameth oxazole 800 mg-trimet hoprim 160 mg tablet TAKE ONE TABLET BY MOUTH TWICE A DAY FOR 3 DAYS 11/02 completed Not Available Not Available Not Available amoxicill in 500 mg tablet TAKE ONE TABLET BY MOUTH TWICE A DAY FOR 7 DAYS 11/02 completed Not Available Not Available Not Available alprazola m 0.5 mg tablet 10/10 completed Medicati on ID: [id number] Du ration Value: 15 Reason: () Brand Name: alprazol am Send Method: E-Prescr ibed Sub s Allowed: subs OK Medic ationGen ericName : alprazol am Not Available Not Available Not Available ofloxacin 0.3 % ear drops 5 drop into both ears 11/02 completed Medicati on ID: [id number] D uration Value: 14 Brand Name: ofloxaci n Send Method: E-Prescr ibed Sub s Allowed: subs OK Speci al Instruct ion: 5 drops into affected ear BID for 14 days Med icationG enericNa me: ofloxaci n Medica tion ID: [id number] D uration Value: 14 Brand Name: ofloxaci n Send Method: E-Prescr ibed Sub s Allowed: subs OK Speci al Instruct ion: 5 drops into affected ear BID for 14 days Med icationG enericNa me: ofloxaci n Not Available Not Available Not Available hydrocort isone-rafael tic acid 1 %-2 % ear drops INSTILL 4 DROPS INTO THE LEFT EAR THREE TIMES A DAY FOR 7 DAYS 11/02 completed Not Available Not Available Not Available nitrofura ntoin macrocrys connie 100 mg capsule TAKE ONE CAPSULE BY MOUTH TWICE A DAY FOR 5 DAYS. MUST ADMINIST ER WITH MEAL/PRIMITIVO D active Not Available Not Available No t Available clotrimaz ole-betam ethasone 1 %-0.05 % topical cream Apply 1 a small amount twice a day 11/02 completed Medicati on ID: [id number] D uration Value: 14 Brand Name: clotrima zole-bet amethaso ne Send Method: E-Prescr ibed Sub s Allowed: subs OK Speci al Instruct ion: Apply with fingerti p to external ear TID X 2 week and as needed M edicatio nGeneric Name: clotrima zole-bet amethaso ne Medic ation ID: [id number] D uration Value: 14 Brand Name: clotrima zole-bet amethaso ne Send Method: E-Prescr ibed Sub s Allowed: subs OK Speci al Instruct ion: Apply with fingerti p to external ear TID X 2 week and as needed M edicatio nGeneric Name: clotrima zole-bet amethaso ne Not Available Not Available Not Available clotrimaz ole 1 % topical solution APPLY 4 DROPS TO THE LEFT EAR 3 TIMES A DAY FOR 2 WEEKS 2023 active Not Available Not Available Not Avai lable gabapenti n 300 mg capsule TAKE ONE CAPSULE BY MOUTH TWICE A DAY AT 6AM. AND 1PM. 11/02 completed Not Available Not Available Not Available gabapenti n 100 mg capsule TAKE ONE TO TWO TABLET BY MOUTH TWICE A DAY DIRECTED . 11/02 completed Not Available Not Available Not Available neomycin- polymyxin -hydrocor t 3.5 mg-10,000 unit/mL-1 % ear drops,jah p into both ears 11/02 completed Medicati on ID: [id number] B rand Name: neomycin -polymyx in-HC Se nd Method: E-Prescr ibed Sub s Allowed: subs OK Speci al Instruct ion: 4 drops affected ear BID X 14 days Med icationG enericNa me: neomycin -polymyx in-HC Me dication ID: [id number] B rand Name: neomycin -polymyx in-HC Se nd Method: E-Prescr ibed Sub s Allowed: subs OK Speci al Instruct ion: 4 drops affected ear BID X 14 days Med icationG enericNa me: neomycin -polymyx in-HC Not Available Not Available Not Available TobraDex 0.3 %-0.1 % eye drops,jah pension 11/02 completed Medicati on ID: [id number] D uration Value: 14 Brand Name: TobraDex Send Method: E-Prescr ibed Sub s Allowed: subs OK Speci al Instruct ion: 4 drops to both ears twice daily x 14 days Med icationG enericNa me: TobraDex Medicat ion ID: [id number] D uration Value: 14 Brand Name: TobraDex Send Method: E-Prescr ibed Sub s Allowed: subs OK Speci al Instruct ion: 4 drops to both ears twice daily x 14 days Med icationG enericNa me: TobraDex Not Available Not Available Not Available ciproflox acin 0.3 %-dexamet hasone 0.1 % ear drops,jah pension INSTILL 4 DROPS BY OTIC ROUTE EAR) TWICE DAILY FOR 7 DAYS active Not Available Not Available No t Available bupropion HCl XL 300 mg 24 hr tablet, extended release TAKE ONE TABLET BY MOUTH EVERY MORNING active Not Available Not Available No t Available bupropion HCl XL 150 mg 24 hr tablet, extended release 08/16 completed Medicati on ID: [id number] B rand Name: bupropio n HCl Send Method: E-Prescr ibed Sub s Allowed: subs OK Medic ationGen ericName : bupropio n HCl Not Available Not Available Not Available duloxetin e 30 mg capsule,d elayed release TAKE ONE CAPSULE BY MOUTH EVERY MORNING WITH THE 60MG CAPSULE) active Not Available Not Available No t Available duloxetin e 60 mg capsule,d elayed release TAKE ONE CAPSULE BY MOUTH EVERY MORNING WITH THE 30MG CAPSULE) active Not Available Not Available No t Available aripipraz ole 2 mg tablet TAKE ONE TABLET BY MOUTH EVERY MORNING active Not Available Not Available No t Available quetiapin e 50 mg tablet 10/10 completed Medicati on ID: [id number] Du ration Value: 30 Reason: () Brand Name: quetiapi ne Send Method: E-Prescr ibed Sub s Allowed: subs OK Medic Cristy ericName : quetiapi ne Not Available Not Available Not Available PreviDent 5000 Dry Mouth 1.1 % dental paste 08/16 completed Medicati on ID: [id number] D uration Value: 30 Brand Name: PreviDen t 5000 Dry Mouth Se nd Method: E-Prescr ibed Sub s Allowed: subs OK Medic ationGen ericName : PreviDen t 5000 Dry Mouth Not Available Not Available Not Available Vitals Date Recorded Body height Body mass index (BMI) Body weight Provider Name and Address Organization Details Last Updated DateTime 04/26/2024 154.94 cm 31.7 kg/m2 88221.52 g Melodie Bob [facility] 04/26/2024 08:31:18 Social History None recorded. Functional Status None recorded. Mental Status None recorded. Family History Nothing Reported Notes:lung cancer 2023 Medical History Condition Response Depression Y Cancer Y Anxiety Y Thyroid Problems Y Gynecological HistoryNo gynecological history recorded. Obstetrics History GPAL:G 0 P 0 0 0 0 Past Encounters Encounter ID Performer Location Encounter Start Date Encounter Closed Date Diagnosis/Indication Diagnosis SNOMED-CT Code Diagnosis ICD10 Code Diagnosis Note [id number] ZARA HERNANDEZ MD [facility] [address] [place] [address] 04/26/2024 08:24:08 04/26/2024 08:59:09 Bilateral disorder of Eustachian tubes 3974622491 710892 H69.83 Marginal p erforation of tympanic membrane 14917466 H72.2X1 Right tympanic membrane perforatio n appears unchanged in size and character. Continue with observatio n. Otorrhea of right ear 10 90493602 494426 H92.11 Patient has a some mild otorrhea from the right side. Recommend Ciprodex drops to be used twice a day for 7 days. She already has this at home. In light of her tendency to have recurrent otorrhea, recommend follow-up in 6 months. Benign par oxysmal positional vertigo 180501335 H81.12 Patient with episodic positional ly induced vertigo. Garnett-Hallpi ke was positive for vertigo and rotary nystagmus with the head to the {{right le ft*}}. We discussed that the patient? 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 The pathophysi ology of BPPV was discussed in detail. Patient was provided with a referral to [facility] for Asa maneuvers and vestibular therapy. We discussed the fact that treatment of BPPV can require anywhere from 1 to 6 treatments for successful results, and has approximat christy 95% success rate in eliminatin g symptoms. BPPV can recur and if the classic positional ly induced symptoms do recur, patient can call for further referrals. Health Concerns Section Related Observation LastModified by Organization Detai ls LastModified Time None Recorded Concern Status LastModified by Organization Details LastModified Time None Recorded Payers Encounter Date Sequence Insurance Name Policy Number Policy [place] Covered Member ID [place] Member ID Guarantor Name 04/26/2024 2 [place] [id number] Silvia Zepeda [id number] Silvia Zepeda 04/26/2024 1 [place] [employer] Silvia Zepeda [id number] Silvia Zepeda Notes Date Note Type Note Provider Name and Address Organization Details Recorded Time 04/26/2024 text/html 73 year old fema le with a history of right tympano-ossiculopla sty with canal wall up mastoidectomy on 09/09/13 and right T-tube on 04/04/14 with long-standing therapeutic right TM perforation presents routine followup. Patient treated over the summer for fungal otorrhea on the left and bacterial otorrhea on the right. Also seen later in the summer with ear pain in the absence of residual infection which was consistent with TMJ.Patient back for 6-month follow-up. No recent discharge or pain. In addition, patient noting positionally induced brief episodes of vertigo particularly when at the gym when she is doing floor exercises. ZARA HERNANDEZ MD [address] [place] [address], [place], [address], [place] - [facility] 04/26/2024 08:59:56 OBGyn Episode No OBEpisode recorded.
--- OUTSIDE RECORDS SUMMARY | 2024-05-23 18:17 | XMS_ITS | Data Portability ---
Author Organization [place] - [facility], Allergy Address [address] [address] Care Team Providers Care Grinding Room Inspector Name Role Phone BLADE WEST Primary Care Provider Assessment Encounter Date Assessment Date Assessment LastModified by Organization Details LastModified Time 11/03/2023 11/03/2023 The right ear is demonstrating what appears to be a bacterial otorrhea which is relatively mild. The left ear is demonstrating fungal otorrhea. Recommend Ciprodex drops for the right ear and clotrimazole drops for the left ear. Specific instructions on application timing and duration provided to the patient and prescription sent to pharmacy. Patient will follow-up with physician operations administrative assistant in 3 weeks to ensure resolution of the infections. Follow-up with me in 6 months. [email or web address] Not available 11/03/2023 11:13:45 12/11/2023 12/11/2023 73-year-old female presents for reevaluation. On examination she has a stable dry right-sided perforation. Stable mild retraction on the left side without debris collection. It appears the infections have resolved bilaterally. TMJ tender to palpation bilaterally. 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 Unsure if she has bruxism. Recommended TMJ precaution and 5 days of regular ibuprofen use. If discomfort continues she will call for reevaluation. Otherwise keep her scheduled appointment with Dr. Hernandez. [email or web address] Not available 12/11/2023 11:36:00 Plan of Treatment Reminders Order Date Submit Date Provider Last Modified By Organization Details Last Modified Time Details Appointments Establish ed 10 2024 08:20A M ZARA HERNANDEZ MD Not available Not available Not available Lab None recorded. Referral None recorded. Procedures None recorded. Surgeries None recorded. Imaging None recorded. Medication Orders ciproflox acin 0.3 %-dexamet hasone 0.1 % ear drops,jah pension 2023 [place] [facility], [address] [place], [address], 11/03/2023 11:09:48 clotrimaz ole 1 % topical solution 2023 024 [place] [facility], [address] [place], [address], 11/03/2023 11:09:49 Patient TargetsNo targets recorded. Patient InstructionsNo instructions recorded. Reason for Referral None Reported. Results Created Date Observation Date Name Description Value Unit Range Abnormal Flag Note LastModifiedBy Organization Detail LastModifiedTime 12/30/19 24 01/26/2023 imagi ng/fátima agnos tic resul t No observ ation record ed. [email or web address] Not Available 02:30:00 12/30/19 24 01/26/2023 audio gram No observ ation record ed. [email or web address] Not Available 02:32:10 Result Notes None recorded. Problems Name Problem SNOMED Code Status Onset Date Resolution Date Notes Provider Name and Address Organization Details Recorded Time Chronic mycotic otitis externa 956259705 Active 2013 Chronic mycotic otitis externa; Location : left [facility] Risk: moderate risk [facility] Treatmen t: new problem (to examiner ): addition al workup planned Note: Date Diagnose d: 04/27/20 14 3:49 PM (380.15) Not Available [facility] 4 02:53:52 Bilatera l disorder of Eustachi an tubes 49647360679 48150 Active 2017 Other specifie d disorder s of Eustachi an tube, bilatera l; Note: Date Diagnose d: 8 9:56 AM (H69.83) Not Available [facility] 4 02:53:51 Disorder of right Eustachi an tube 47192053710 13948 Active 2016 Other specifie d disorder s of Eustachi an tube, right ear; Note: Date Diagnose d: 10/10/2016 3:51 PM (H69.81) Not Available [facility] 4 02:53:47 Impacted cerumen in left ear 75853688495 31631 Completed 201612/11/2023 Impacted cerumen, left ear; Note: Date Diagnose d: 7 2:26 PM (H61.22) Not Available [facility] 4 02:53:50 Bilatera l diffuse otitis externa 86128533841 Completed 202112/11/2023 Diffuse otitis externa, bilatera l; Note: Date Diagnose d: 2 10:52 AM (H60.313 ) Not Available [facility] 4 02:53:51 Sensorin eural hearing loss in left ear 24245380339 109 Active 2017 Sensorin eural hearing loss, unilater al, left ear, with restrict ed hearing on the contrala teral side; Note: Date Diagnose d: 8 10:54 AM (H90.A22 ) Not Available [facility] 4 02:53:49 Mixed conducti ve and sensorin eural hearing loss of right ear 65474863700 105 Active 2017 Mixed conducti ve and sensorin eural hearing loss, unilater al, right ear with restrict ed hearing on the contrala teral side; Note: Date Diagnose d: 8 10:54 AM (H90.A31 ) Not Available [facility] 4 02:53:50 Superfic ial mycosis 155692362 Completed 202112/11/2023 Other specifie d superfic ial mycoses; Location : left Not e: Date Diagnose d: 2 10:37 AM (B36.8) Not Available [facility] 4 02:53:50 Marginal perforat ion of tympanic membrane 87917569 Active 2016 Other marginal perforat ions of tympanic membrane , right ear; Note: Date Diagnose d: 7 2:26 PM (H72.2X1 ) Not Available [facility] 4 02:53:52 Otorrhea of bilatera l ears 07055568993 63092 Completed 202112/11/2023 Otorrhea , bilatera l; Note: Date Diagnose d: 08/16/2021 10:58 AM (H92.13) Not Available [facility] 4 02:53:52 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, unspecif ied as to involvem ent; Note: Date Diagnose d: 4 12:06 PM (385.10) ; Start Date : 03/16/20 14 Adhes agustín middle ear disease, bilatera l; Note: Changed from H74.11 to H74.13 (11/27/19 18 9:58 AM) , Date Diagnose d: 10/10/2016 3:50 PM (H74.11) Not Available [facility] 4 02:53:48 Candidal otitis externa 98662595 Active 2022 Candidal otitis externa; Location : left Not e: Date Diagnose d: 04/07/20 23 11:21 AM (B37.84) Candid al otitis externa; Note: Date Diagnose d: 3 2:52 PM (B37.84) ; Start Date : 01/06/20 23 [facility] otitis externa; Location : left Not e: Date Diagnose d: 04/29/20 17 1:35 PM (B37.84) ; Start Date : 04/29/20 17 Not Available [facility] 4 02:53:51 Otorrhea of right ear 64322372216 40783 Completed 202012/11/2023 Otorrhea , right ear; Note: [...] Date : 10/11/19 17 ZARA HERNANDEZ MD [address] [place] [address],[place] [address], [place], [address] , [facility] - [facility] 4 08:48:24 Otorrhea of bilatera l ears 77867098095 53607 Active 2023 Otorrhea , bilatera l; Note: Date Diagnose d: 08/16/2021 10:58 AM (H92.13) Note: Date Diagnose d: 08/16/2021 10:58 AM (H92.13) ZARA HERNANDEZ MD [address] [place] [address], [place], [address] , [facility] - [facility] 4 11:08:28 Dysfunct ion of eustachi an tube 00312727 Active 2013 Eustachi an tube dysfunct ion; Note: Date Diagnose d: 4 12:06 PM (381.81) Not Available [facility] 4 02:53:47 Otorrhea of left ear 90936938660 57447 Active 2022 Otorrhea , left ear; Note: Date Diagnose d: 3 2:52 PM (H92.12) Otorrh ea, left ear; Note: Date Diagnose d: 04/09/20 21 2:05 PM (H92.12) ; Start Date : 04/09/20 21 Otorr hea, left ear; Note: Date Diagnose d: 04/29/20 17 1:35 PM (H92.12) ; Start Date : 04/29/20 17 Not Available [facility] 4 02:53:49 Infectiv e otitis externa of right ear 72313694493 58897 Active 2022 Other infectiv e otitis externa, right ear; Location : right No te: Date Diagnose d: 04/07/20 23 11:20 AM (H60.391 ) Not Available [facility] 4 02:53:51 Bilatera l earache 200898608 Active 2023 ELIEZER RIVERO PA-C [address] [facility],[place] [address], [place], [address] , [facility] - [facility] 4 11:36:29 Otorrhea of right ear 16458624771 22979 Active 2023 Otorrhea , right ear; Note: [...] Date : 10/11/19 17 ZARA HERNANDEZ MD [address] [place] [address],[place] [address], [place], [address] , [facility] - [facility] 4 08:48:24 Benign paroxysm al position al vertigo 520721935 Active 2023 ZARA HERNANDEZ MD [address] [facility],[place] [address], [place], [address] , [place] - [facility] 4 08:50:34 Benign paroxysm al position al vertigo 443804944 Active 2023 ZARA HERNANDEZ MD [address] [facility],[place] [address], [place], [address] , [place] - [facility] 4 08:51:06 Marginal perforat ion of tympanic membrane 23505066 Active 2023 ZARA HERNANDEZ MD [address] [facility],[place] [address], [place], [address] , [place] - [facility] 4 08:57:52 Problem Notes None recorded. Procedures Surgical History Date Name Laterality Status Provider Name and Address Organization Details Recorded Time 04/26/20 24 Debridement of Ear canal right completed ZARA HERNANDEZ MD [address] [facility],[place] [address], [place], [address], [facility] 04/26/2024 08:48:18 11/03/19 24 Cerumen removal with microscope bilateral completed ZARA HERNANDEZ MD [address] [facility],[place] [address], [place], [address], [facility] - [facility] 11/03/2023 11:14:29 total replacement of hip completed Blade Davis [facility] 11/03/2023 10:35:22 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 Medical Equipment None Reported. Medications Name Sig Start Date Stop Date Status Note LastModified by Organization Details LastModified Time bupropion HCl SR 150 mg tablet,12 hr sustained -release 03/13 completed Medicati on ID: [id number] D uration Value: 30 Brand Name: bupropio [...] mg tablet 10/10 completed Medicati on ID: [id number] Du ration Value: 15 Reason: () Brand Name: alprazol am Send Method: E-Prescr ibed Sub s Allowed: subs OK Medic ationGen ericName : alprazol am Not Available Not Available Not Available ofloxacin 0.3 % ear drops 5 drop into both ears 11/02 completed Medicati on ID: [id number] D uration Value: 14 Brand Name: ofloxaci n Send Method: E-Prescr ibed Sub s Allowed: subs OK Speci al Instruct ion: 5 drops into affected ear BID for 14 days Med icationG enericNa me: ofloxaci n Medica tion ID: [id number] D uration Value: 14 Brand Name: ofloxaci [...] a day 11/02 completed Medicati on ID: [id number] D uration Value: 14 Brand Name: clotrima zole-bet amethaso ne Send Method: E-Prescr ibed Sub s Allowed: subs OK Speci al Instruct ion: Apply with fingerti p to external ear TID X 2 week and as needed M edicatio nGeneric Name: clotrima zole-bet amethaso ne Medic ation ID: [id number] D uration Value: 14 Brand Name: clotrima zole-bet amethaso ne Send Method: E-Prescr ibed Sub s Allowed: subs OK Speci al Instruct ion: Apply with fingerti p to external ear TID X 2 week and as needed Debra Hardinivet Name: melly green joaquim Not Available Not Available Not Available clotrimaz [...] both ears 11/02 completed Medicati on ID: [id number] B rand Name: neomycin -polymyx in-HC Se nd Method: E-Prescr ibed Sub s Allowed: subs OK Speci al Instruct ion: 4 drops affected ear BID X 14 days Med icationG enericNa me: neomycin -polymyx in-HC Me dication ID: [id number] B rand Name: neomycin -polymyx in-HC Se nd Method: E-Prescr ibed Sub s Allowed: subs OK Speci al Instruct ion: 4 drops affected ear BID X 14 days Med icationG enericNa me: neomycin -polymyx in-HC Not Available Not Available Not Available TobraDex 0.3 %-0.1 % eye drops,jah pension 11/02 completed Medicati on ID: [id number] D uration Value: 14 Brand Name: TobraDex Send Method: E-Prescr ibed Sub s Allowed: subs OK Speci al Instruct ion: 4 drops to both ears twice daily x 14 days Med icationG enericNa me: TobraDex Medicat ion ID: [id number] D uration Value: 14 Brand Name: TobraDex [...] extended release 08/16 completed Medicati on ID: [id number] B rand Name: bupropio n HCl Send [...] mg tablet 10/10 [place] ID: [id number] Du ration Value: 30 Reason: () Brand Name: quetiapi ne Send Method: E-Prescr ibed Sub s Allowed: subs OK Medic ationGen ericName : quetiapi ne Not Available Not Available Not Available PreviDent 5000 Dry Mouth 1.1 % dental paste 08/16 completed Medicati on ID: [id number] D uration Value: 30 Brand Name: PreviDen t 5000 Dry Mouth Se nd Method: E-Prescr ibed Sub s Allowed: subs OK Medic ationGen ericName : PreviDen t 5000 Dry Mouth Not Available Not Available Not Available Vitals Date Recorded Body height Body mass index (BMI) Body weight Provider Name and Address Organization Details Last Updated DateTime 11/03/2023 154.94 cm 31.7 kg/m2 15748.52 g Blade Davis [place] - [facility] 11/03/2023 11:14:19 Date Recorded Body height Body mass index (BMI) Body weight Provider Name and Address Organization Details Last Updated DateTime 12/11/2023 154.94 cm 31.7 kg/m2 65549.52 g Juvenal Jerry [facility] 12/11/2023 10:28:46 Date Recorded Body height Body mass index (BMI) Body weight Provider Name and Address Organization Details Last Updated DateTime 04/26/2024 154.94 cm 31.7 kg/m2 89823.52 g Melodie Bob [facility] 04/26/2024 08:31:18 Social History None recorded. Functional Status None recorded. Mental Status None recorded. Family History Nothing Reported Notes:lung cancer 2023 Medical History Condition Response Anxiety Y Thyroid Problems Y Depression Y Cancer Y Gynecological HistoryNo gynecological history recorded. Obstetrics History GPAL:G 0 P 0 0 0 0 Past Encounters Encounter ID Performer Location Encounter Start Date Encounter Closed Date Diagnosis/Indication Diagnosis SNOMED-CT Code Diagnosis ICD10 Code Diagnosis Note [id number] ZARA HERNANDEZ MD [facility] [address] [address] 11/03/2023 10:05:19 11/03/2023 11:23:22 Bilateral disorder of Eustachian tubes 8029460525 102010 H69.83 Marginal p erforation of tympanic membrane 03163061 H72.2X1 Candidal o titis externa 41316229 B37.84 Otorrhea o f bilateral ears 8174032177 209496 H92.13 [id number] RICO SHEPHERD MD [facility] [address] [address] 12/11/2023 10:24:09 12/11/2023 10:39:31 Bilateral disorder of Eustachian tubes 0851743062 164021 H69.83 Adhesive m iddle ear disease 2374271 H74.13 Marginal p erforation of tympanic membrane 60006482 H72.2X1 Mixed cond uctive and sensorineural hearing loss of right ear 7093585612 9105 H90.A31 Sensorineu ral hearing loss in left ear 4933610784 9109 H90.A22 Bilateral earache 418971 003 H92.03 [id number] ZARA HERNANDEZ MD [facility] [address] [place] [address] 04/26/2024 08:24:08 04/26/2024 08:59:09 Bilateral disorder of Eustachian tubes 2609169174 447324 H69.83 Marginal p erforation of tympanic membrane 88683002 H72.2X1 Right tympanic membrane perforatio n appears unchanged in size and character. Continue with observatio n. Otorrhea of right ear 10 48188634 984414 H92.11 Patient has a some mild otorrhea from the right side. Recommend Ciprodex drops to be used twice a day for 7 days. She already has this at home. In light of her tendency to have recurrent otorrhea, recommend follow-up in 6 months. Benign par oxysmal positional vertigo 328000588 H81.12 Patient with episodic positional ly induced vertigo. [place] was positive for vertigo and rotary [...] by Organization Details LastModified Time None Recorded Advance Directives Directive None Recorded Payers Encounter Date Sequence Insurance Name Policy Number Policy [place] Covered Member ID [place] Member ID Guarantor Name 11/03/2023 1 [place] [employer] Silvia Zepeda [id number] Silvia Zepeda 12/11/2023 2 [place] [id number] Silvia Zepeda [id number] Silvia Zepeda 12/11/2023 1 [place] [employer] [place] Silvia Zepeda [id number] Silvia Zepeda 04/26/2024 2 [place] [id number] Silvia Zepeda [id number] Silvia Zepeda 04/26/2024 1 [place] [facility] Silvia Zepeda [id number] Silvia Zepeda Notes Date Note Type Note Provider Name and Address Organization Details Recorded Time 11/03/2023 text/html 73 year old farzaneh rivas with a history of right tympano-ossiculopla sty with canal wall up mastoidectomy on 09/09/13 and right T-tube on 04/04/14 with long-standing therapeutic right TM perforation presents routine followup. She has been noticing black fungal discharge from the left ear about 4 to 5 days ago. The right side has been symptomatic for a few weeks. ZARA HERNANDEZ MD [address] [place] [address], [address], [facility] - [facility] 11/03/2023 11:14:56 12/11/2023 text/html 73-year-old farzaneh rivas presents for reevaluation of bilateral otitis externa. History of right TM perforation. At her last visit was noted to have fungal debris on 1 side and bacterial infection on the other. She has used her drops appropriately and feels the ears are dry. They do continue to be sore. Particularly in front of the ear which is exacerbated by opening and closing her mouth. RICO SHEPHERD MD [address] [place] [address], [address], [facility] - [facility] 12/12/2023 10:14:02 04/26/2024 text/html 73 year old farzaneh rivas with a history of right tympano-ossiculopla sty [...] is doing floor exercises. ZARA HERNANDEZ MD [address] [place] [address], [place], [address], [facility] - [facility] 04/26/2024 08:59:56 OBGyn Episode No OBEpisode recorded.
== END 2024-05-23 15:17 | disposition home or self-care (01) ==
PROVIDERS: PCP Internal Medicine; Visit Provider Internal Medicine
DX: Z00.00 Encounter for general adult medical examination without abnormal findings (principal); J44.9 Chronic obstructive pulmonary disease, unspecified; Z89.512 Acquired absence of left leg below knee; F32.0 Major depressive disorder, single episode, mild; Z23 Encounter for immunization

== ENCOUNTER → 2024-05-23 14:24 | Outpatient (BNVA) | payer MEDICARE, SELFPAY | PROVIDERS: PCP Internal Medicine; Visit Provider Internal Medicine | DX: Z00.00 Encounter for general adult medical examination without abnormal findings (principal); J44.9 Chronic obstructive pulmonary disease, unspecified; F32.0 Major depressive disorder, single episode, mild; Z89.512 Acquired absence of left leg below knee | CPT/HCPCS: 96127 ==

== ENCOUNTER 2024-06-28 07:56 | Outpatient (RCR) | payer MEDICARE, SELFPAY ==
--- NOTE | 2024-05-24 09:35 | MHC.PT.EP ---
[facility] [place] Office [place] Office [place] Office [address] Essence Mackey [address] [phone] F: [phone] F: [phone] F: [phone] F: [phone] Physical Therapy Plan of Care Date of Evaluation: 05/24/24 Date of Surgery: NA Diagnosis: Unspecified urinary incontinence Assessment: Silvia is a 73 year old female who is referred to PT for unspecified urinary incontinence . She reports of having symptoms of UI with coughing and when holding urine for more than 45 minutes about 5 years back. She denies any trauma or falls. She also reports of having bladder surgery more than 5 years back but does not remember what was done. She denies having any pain, urgency, frequency or any issues with BM. She is not sexually active but never had pain with this. She presented with good lumbar ROM but decreased core strength. Unable to assess further due to time constraints. She lives alone and is independent with all ADLS. 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 She would benefit from skilled PT to address the aforementioned impairments and improve tolerance to functional activities. Frequency and Duration: The patient will be seen 1/week for 5 weeks Short Term Goals: 1. Pt will note a 50% decrease in UI with coughing in 2 weeks 2. Pt be able to drop nigh voidings from 3 to 1 in 3 weeks Alf Goals: 1. Pt will deny having any episodes of UI and will not need to use a pad in 5 weeks 2. Pt will be independent with all HEP for symptom management and maintenance following d/c in 5 weeks. Treatment Plan: Modalities to reduce pain, spasms and effusion. Manual therapy to restore motion and function. Therapeutic exercise to improve strength and flexibility. Neuromuscular re-education for posture and balance. Therapeutic activities to return to functional activities of daily living. Electronically signed by: Please sign and return to therapist. Thank you for your referral.
--- NOTE | 2024-07-12 13:55 | MHC.PT.DC ---
[facility] [place] Office [place] Office [place] Office [address] Essence Mackey [address] [phone] F: [phone] F: [phone] F: [phone] F: [phone] Physical Therapy Discharge Report Diagnosis: Unspecified urinary incontinence Date of Surgery: NA Date of Evaluation: 05/24/24 Date of Discharge: 07/12/24 Treatments to Date: 5 Cancellations to Date: 0 No Shows to Date: 0 Discharge Status: Improved Function Independent with HEP Discharge Summary: Silvia attended 5 PT visits. She made significant improvements with PT but continues to have UI with high intensity activities. I recommended continuing PT for more visits however she stated that she would like to be d/c. She stated that she would continue with her HEP. She was therefore d/c from PT. Electronically signed by: Eusebia Pardo, PT DPT Please sign and return to therapist. Thank you for your referral.
== END 2024-07-12 13:55 | disposition home or self-care (01) ==
LOC: HO.PT 07:56
PROVIDERS: PCP Internal Medicine; Visit Provider Internal Medicine
DX: R32 Unspecified urinary incontinence (principal)
CPT/HCPCS: 97112; 97140; 97161

== ENCOUNTER 2024-09-19 14:15 | Outpatient (AMB) | payer MEDICARE, SELFPAY ==
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
[2024-09-19 14:27] VITALS: BP 120/62; PULSE 61; O2SAT 97
--- OUTSIDE RECORDS SUMMARY | 2024-09-19 14:29 | XMS_ITS | Data Portability ---
Author Organization [place] - [facility], Allergy Address [address] [address] Care Team Providers Care Instant Potato Processor Name Role Phone [facility] Primary Care Provider [phone] Assessment Encounter Date Assessment Date Assessment LastModified [...] to pharmacy. Patient will follow-up with physician certified medical technician assistant in 3 weeks to ensure resolution of the infections. Follow-up with me in 6 months. [email or web address] Not available 11/03/2023 11:13:45 12/11/2023 12/11/2023 73-year-old [...] hasone 0.1 % ear drops,jah pension 2023 [facility] [place], [address], 11/03/2023 11:09:48 clotrimaz ole 1 % topical solution 2023 024 [facility] [place], [address], 11/03/2023 11:09:49 Patient TargetsNo targets recorded. Patient [...] Details Recorded Time Chronic mycotic otitis externa 634913328 Active 2013 Chronic mycotic otitis externa; Location : left [facility] Risk: moderate risk [facility] Treatmen t: new problem (to examiner ): addition al workup planned Note: Date Diagnose d: 04/27/20 14 3:49 PM (380.15) Not Available [facility] 4 02:53:52 Bilatera l disorder of Eustachi an tubes 84109106452 96711 Active 2017 Other specifie d disorder s of Eustachi an tube, bilatera l; Note: Date Diagnose d: 8 9:56 AM (H69.83) Not Available [facility] 4 02:53:51 Disorder of right Eustachi an tube 06818703094 35848 Active 2016 Other specifie d disorder s of Eustachi an tube, right ear; Note: Date Diagnose d: 10/10/2016 3:51 PM (H69.81) Not Available [facility] 4 02:53:47 Impacted cerumen in left ear 34342206821 23114 Completed 201612/11/2023 Impacted cerumen, left ear; Note: Date Diagnose d: 7 2:26 PM (H61.22) Not Available [facility] 4 02:53:50 Bilatera l diffuse otitis externa 97158691275 Completed 202112/11/2023 Diffuse otitis externa, bilatera l; Note: Date Diagnose d: 2 10:52 AM (H60.313 ) Not Available [facility] 4 02:53:51 Sensorin eural hearing loss in left ear 33898604939 109 Active 2017 Sensorin eural hearing loss, unilater al, left ear, with restrict ed hearing on the contrala teral side; Note: Date Diagnose d: 8 10:54 AM (H90.A22 ) Not Available [facility] 4 02:53:49 Mixed conducti ve and sensorin eural hearing loss of right ear 89681942938 105 Active 2017 Mixed conducti ve and sensorin eural hearing loss, unilater al, right ear with restrict ed hearing on the contrala teral side; Note: Date Diagnose d: 8 10:54 AM (H90.A31 ) Not Available [facility] 4 02:53:50 Superfic ial mycosis 071111757 Completed 202112/11/2023 Other specifie d superfic ial mycoses; Location : left Not e: Date Diagnose d: 2 10:37 AM (B36.8) Not Available [facility] 4 02:53:50 Marginal perforat ion of tympanic membrane 53866585 Active 2016 Other marginal perforat ions of tympanic membrane , right ear; Note: Date Diagnose d: 7 2:26 PM (H72.2X1 ) Not Available [facility] 4 02:53:52 Otorrhea of bilatera l ears 59419212040 91198 Completed 202112/11/2023 Otorrhea , bilatera l; Note: Date Diagnose d: 08/16/2021 10:58 AM (H92.13) Not Available [facility] 4 02:53:52 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, unspecif ied as to involvem ent; Note: Date Diagnose d: 4 12:06 PM (385.10) ; Start Date : 03/16/20 14 Adhes agustín middle ear disease, bilatera l; Note: Changed from H74.11 to H74.13 (11/27/19 18 9:58 AM) , Date Diagnose d: 10/10/2016 3:50 PM (H74.11) Not Available [facility] 4 02:53:48 Candidal otitis externa 94282460 Active 2022 Candidal otitis externa; Location : left Not e: Date Diagnose d: 04/07/20 23 11:21 AM (B37.84) Candid al otitis externa; Note: Date Diagnose d: 3 2:52 PM (B37.84) ; Start Date : 01/06/20 23 [facility] otitis externa; Location : left Not e: Date Diagnose d: 04/29/20 17 1:35 PM (B37.84) ; Start Date : 04/29/20 17 Not Available [facility] 4 02:53:51 Otorrhea of right ear 84882715426 85331 Completed 202012/11/2023 Otorrhea , right ear; Note: [...] Date : 10/11/19 17 ZARA HERNANDEZ MD [address] [place] [address],[place] [address], [place], [address] , [facility] - [facility] 4 08:48:24 Otorrhea of bilatera l ears 20237770390 13743 Active 2023 Otorrhea , bilatera l; Note: Date Diagnose d: 08/16/2021 10:58 AM (H92.13) Note: Date Diagnose d: 08/16/2021 10:58 AM (H92.13) ZARA HERNANDEZ MD [address] [place] [address], [place], [address] , [facility] - [facility] 4 11:08:28 Dysfunct ion of eustachi an tube 40893401 Active 2013 Eustachi an tube dysfunct ion; Note: Date Diagnose d: 4 12:06 PM (381.81) Not Available [facility] 4 02:53:47 Otorrhea of left ear 17912761394 31960 Active 2022 Otorrhea , left ear; Note: Date Diagnose d: 3 2:52 PM (H92.12) Otorrh ea, left ear; Note: Date Diagnose d: 04/09/20 21 2:05 PM (H92.12) ; Start Date : 04/09/20 21 Otorr hea, left ear; Note: Date Diagnose d: 04/29/20 17 1:35 PM (H92.12) ; Start Date : 04/29/20 17 Not Available [facility] 4 02:53:49 Infectiv e otitis externa of right ear 58475306903 61538 Active 2022 Other infectiv e otitis externa, right ear; Location : right No te: Date Diagnose d: 04/07/20 23 11:20 AM (H60.391 ) Not Available [facility] 4 02:53:51 Bilatera l earache 893946449 Active 2023 ELIEZER RIVERO PA-C [address] [facility],[place] [address], [place], [address] , [facility] - [facility] 4 11:36:29 Otorrhea of right ear 13289256746 93924 Active 2023 Otorrhea , right ear; Note: [...] Date : 10/11/19 17 ZARA HERNANDEZ MD [address] [place] [address],[place] [address], [place], [address] , [facility] - [facility] 4 08:48:24 Benign paroxysm al position al vertigo 296369974 Active 2023 ZARA HERNANDEZ MD [address] [facility],[place] [address], [place], [address] , [place] - [facility] 4 08:50:34 Benign paroxysm al position al vertigo 515389357 Active 2023 ZARA HERNANDEZ MD [address] [facility],[place] [address], [place], [address] , [place] - [facility] 4 08:51:06 Marginal perforat ion of tympanic membrane 49082693 Active 2023 ZARA HERNANDEZ MD [address] [facility],[place] [address], [place], [address] , [place] - [facility] 4 08:57:52 Problem Notes None recorded. Procedures Surgical History Date Name Laterality Status Provider Name and Address Organization Details Recorded Time 04/26/20 24 Debridement of Ear canal right completed ZARA HERNANDEZ MD [address] [facility],[place] [address], [place], [address], [facility] 04/26/2024 08:48:18 11/03/19 24 Cerumen removal with microscope bilateral completed ZARA HERNANDEZ MD [address] [facility],[place] [address], [place], [address], [facility] - [facility] 11/03/2023 11:14:29 total replacement of hip completed Blade Davis [facility] 11/03/2023 10:35:22 amputation of leg through tibia and fibula completed Blade Davis [facility] 11/03/2023 10:36:16 Imaging Results Imaging Date Name Status LastModified by Organiz ation Details LastModified Time 01/26/2023 imaging/diagno stic result [email or web address] Information not available 12/30/2023 02:30:00 01/26/2023 audiogram completed [email or web address] Information not available 12/30/2023 02:32:10 Procedure Notes None recorded. Medical Equipment None Reported. Medications Name Sig Start Date Stop Date Status Note LastModified by Organization Details LastModified Time bupropion HCl SR 150 mg tablet,12 hr sustained -release 03/13 completed Medicati on ID: [id number] D uration Value: 30 Brand Name: bupropio [...] Not Available Not Available No t Available valacyclo vir 1 gram tablet TAKE ONE TABLET BY MOUTH EVERY 8 HOURS active Not Available Not Available No t [...] mg tablet 10/10 completed Medicati on ID: [id number] Du ration Value: 15 Reason: () Brand Name: alprazol am Send Method: E-Prescr ibed Sub s Allowed: subs OK Medic ationGen ericName : alprazol am Not Available Not Available Not Available ofloxacin 0.3 % ear drops 5 drop into both ears 11/02 completed Medicati on ID: [id number] D uration Value: 14 Brand Name: ofloxaci n Send Method: E-Prescr ibed Sub s Allowed: subs OK Speci al Instruct ion: 5 drops into affected ear BID for 14 days Med icationG enericNa me: ofloxaci n Medica tion ID: [id number] D uration Value: 14 Brand Name: ofloxaci [...] a day 11/02 completed Medicati on ID: [id number] D uration Value: 14 Brand Name: clotrima zole-bet amethaso ne Send Method: E-Prescr ibed Sub s Allowed: subs OK Speci al Instruct ion: Apply with fingerti p to external ear TID X 2 week and as needed M edicatio nGeneric Name: clotrima zole-bet amethaso ne Medic ation ID: [id number] D uration Value: 14 Brand Name: melly march Send Method: E-Prescr ibed Sub s Allowed: subs OK Speci al Instruct ion: Apply with fingerti p to external ear TID X 2 week and as needed Debra Soliz Name: melly march Not Available Not Available Not Available clotrimaz [...] both ears 11/02 completed Medicati on ID: [id number] B rand Name: neomycin -polymyx in-HC Se nd Method: E-Prescr ibed Sub s Allowed: subs OK Speci al Instruct ion: 4 drops affected ear BID X 14 days Med icationG enericNa me: neomycin -polymyx in-HC Me dication ID: [id number] B rand Name: neomycin -polymyx in-HC Se nd Method: E-Prescr ibed Sub s Allowed: subs OK Speci al Instruct ion: 4 drops affected ear BID X 14 days Med icationG enericNa me: neomycin -polymyx in-HC Not Available Not Available Not Available TobraDex 0.3 %-0.1 % eye drops,jah pension 11/02 completed Medicati on ID: [id number] D uration Value: 14 Brand Name: TobraDex Send Method: E-Prescr ibed Sub s Allowed: subs OK Speci al Instruct ion: 4 drops to both ears twice daily x 14 days Med icationG enericNa me: TobraDex Medicat ion ID: [id number] D uration Value: 14 Brand Name: TobraDex Send Method: E-Prescr ibed Sub s Allowed: subs OK Speci al Instruct ion: 4 drops to both ears twice daily x 14 days Med icationG enericNa me: TobraDex Not Available Not Available Not Available ciproflox acin 0.3 %-dexamet hasone 0.1 % ear drops,jah pension Instill 4 drops twice a day by otic route for 7 days. 2024 active Not Available Not Available Not Avai lable bupropion HCl XL 300 mg 24 hr tablet, extended release TAKE ONE TABLET BY MOUTH EVERY MORNING active Not Available Not Available No t Available bupropion HCl XL 150 mg 24 hr tablet, extended release 08/16 completed Medicati on ID: [id number] B rand Name: bupropio n HCl Send Method: E-Prescr ibed Sub s Allowed: subs OK Medic ationGen ericName : bupropio n HCl Not Available Not Available Not Available duloxetin e 30 mg capsule,d elayed release TAKE ONE CAPSULE BY MOUTH EVERY MORNING WITH 60MG CAPSULE) . active Not Available Not Available No t Available duloxetin e 60 mg capsule,d elayed release TAKE ONE CAPSULE BY MOUTH EVERY MORNING WITH 30 MG CAPSULE) . active Not Available Not Available No t Available aripipraz ole 2 mg tablet TAKE ONE TABLET BY MOUTH EVERY MORNING active Not Available Not Available No t Available quetiapin e 50 mg tablet 10/10 completed Medicati on ID: [id number] Du ration Value: 30 Reason: () Brand Name: quetiapi ne Send Method: E-Prescr ibed Sub s Allowed: subs OK Medic ationGen ericName : quetiapi ne Not Available Not Available Not Available PreviDent 5000 Dry Mouth 1.1 % dental paste 08/16 completed Medicati on ID: [id number] D uration Value: 30 Brand Name: PreviDen t 5000 Dry Mouth Se nd Method: E-Prescr ibed Sub s Allowed: subs OK Medic ationGen ericName : PreviDen t 5000 Dry Mouth Not Available Not Available Not Available Vitals Date Recorded Body height Body mass index (BMI) Body weight Provider Name and Address Organization Details Last Updated DateTime 11/03/2023 154.94 cm 31.7 kg/m2 45929.52 g Blade Davis [place] - [facility] 11/03/2023 11:14:19 Date Recorded Body height Body mass index (BMI) Body weight Provider Name and Address Organization Details Last Updated DateTime 12/11/2023 154.94 cm 31.7 kg/m2 10594.52 g Juvenal Jerry [facility] 12/11/2023 10:28:46 Date Recorded Body height Body mass index (BMI) Body weight Provider Name and Address Organization Details Last Updated DateTime 04/26/2024 154.94 cm 31.7 kg/m2 47284.52 g Myrtleshara Bob [facility] 04/26/2024 08:31:18 Social History None recorded. Functional Status None recorded. Mental Status None recorded. Family History Nothing Reported Notes:lung cancer 2023 Medical History Condition Response Cancer Y Anxiety Y Thyroid Problems Y Depression Y Gynecological HistoryNo gynecological history recorded. Obstetrics History GPAL:G 0 P 0 0 0 0 Past Encounters Encounter ID Performer Location Encounter Start Date Encounter Closed Date Diagnosis/Indication Diagnosis SNOMED-CT Code Diagnosis ICD10 Code Diagnosis Note [id number] ZARA HERNANDEZ MD [facility] [address] [address] 11/03/2023 10:05:19 11/03/2023 11:23:22 Bilateral disorder of Eustachian tubes [id number] 936654 H69.83 Marginal p erforation of tympanic membrane 64563029 H72.2X1 Candidal o titis externa 77580236 B37.84 Otorrhea o f bilateral ears 6855661267 093198 H92.13 [id number] ELIEZER RIVERO PA-C [facility] [address] [address] 12/11/2023 10:24:09 12/11/2023 10:39:31 Bilateral disorder of Eustachian tubes 5874109446 140688 H69.83 Adhesive m iddle ear disease 8039234 H74.13 Marginal p erforation of tympanic membrane 39535696 H72.2X1 Mixed cond uctive and sensorineural hearing loss of right ear 8062968264 9105 H90.A31 Sensorineu ral hearing loss in left ear 0077396566 9109 H90.A22 Bilateral earache 479114 003 H92.03 [id number] ZARA HERNANDEZ MD [facility] [address] [place] [address] 04/26/2024 08:24:08 04/26/2024 08:59:09 Bilateral disorder of Eustachian tubes 2794306159 207976 H69.83 Marginal p erforation of tympanic membrane 58758227 H72.2X1 Right tympanic membrane perforatio n appears unchanged in size and character. Continue with observatio n. Otorrhea of right ear 10 49571828 833701 H92.11 Patient has a some mild otorrhea from the right side. Recommend Ciprodex drops to be used twice a day for 7 days. She already has this at home. In light of her tendency to have recurrent otorrhea, recommend follow-up in 6 months. Benign par oxysmal positional vertigo 157832895 H81.12 Patient with episodic positional ly induced vertigo. [place]Hall[place] ke was positive for vertigo and rotary nystagmus with the head to the {{right le ft*}}. We discussed that the patient? 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 The pathophysi ology of BPPV was discussed in detail. Patient was provided with a referral to [facility] for Asa maneuvers and vestibular therapy. We [...] Recorded Advance Directives Directive None Recorded Payers Insurance Date Sequence Insurance Name Policy Number Policy [place] Covered Member ID [place] Member ID Guarantor Name 11/21/2023 2 [place] Silvia Zepeda 04/26/2024 2 [place] [id number] Silvia Zepeda [id number] Silvia Zepeda 01/26/2024 2 [place] [id number] Silvia Zepeda [id number] Silvia Zepeda 04/26/2024 1 [place] [facility] Silvia Zepeda [id number] Silvia Zepeda 04/26/2024 2 [place] [facility] Silvia Zepeda [id number] Silvia Zepeda Notes Date Note Type Note [...] for a few weeks. ZARA HERNANDEZ MD [address] [facility],[address], [address], [place] - [facility] 11/03/2023 11:14:56 12/11/2023 text/html 73-year-old farzaneh rivas [...] and closing her mouth. RICO SHEPHERD MD [address] [facility],[address], [address], [place] - [facility] 12/12/2023 10:14:02 04/26/2024 text/html 73 year old [...] is doing floor exercises. ZARA HERNANDEZ MD [address] [place] [address], [place], [address], [place] [facility] 04/26/2024 08:59:56 OBGyn Episode No OBEpisode recorded.
== END 2024-09-19 14:54 | disposition home or self-care (01) ==
LOC: HO.HPS 14:16
PROVIDERS: PCP Internal Medicine; Visit Provider Internal Medicine
DX: J44.9 Chronic obstructive pulmonary disease, unspecified (principal); R05.9 Cough, unspecified
CPT/HCPCS: 99213

== ENCOUNTER → 2024-09-19 14:15 | Outpatient (BNVA) | payer MEDICARE, SELFPAY | PROVIDERS: PCP Internal Medicine; Visit Provider Internal Medicine | DX: J44.9 Chronic obstructive pulmonary disease, unspecified (principal); R05.9 Cough, unspecified | CPT/HCPCS: 99212 ==

== ENCOUNTER 2024-11-15 10:58 | Outpatient (REF) | payer MEDICARE, SELFPAY ==
--- NOTE | ~2024-11-15 | XR_ITS ---
EXAMINATION: XR LUMBOSACRAL SPINE CLINICAL INFORMATION: M54.50 - Low back pain, unspecified COMPARISON: None available. TECHNIQUE: Three views of the lumbosacral spine. FINDINGS: Right upper quadrant clips are related to prior cholecystectomy There is a surgical clip in the left hemipelvis. Mild to moderate degenerative changes are noted in the SI joints, greater on the right. Total hip replacement on the right is incompletely imaged. There are 5 nonrib-bearing lumbar segments. No acute injuries mild disc space narrowing. L4-5 demonstrates mild grade 1 anterolisthesis. Facet sclerosis is evident at L4-5 and L5-S1. XR/XR lumbar spine 2-3V IMPRESSION: Mild degenerative changes, outlined above. Electronically signed by: Jerrod Polanco MD 11/15/2024 11:33 AM EDT
--- NOTE | ~2024-11-15 | XR_ITS ---
EXAMINATION: XR HIP 2 OR MORE VIEWS RIGHT HISTORY: M25.551 - Pain in right hip COMPARISON: There are no prior studies for comparison. FINDINGS: Two views of the right hip are submitted. The patient is again noted to be status post right total hip arthroplasty. The orthopedic elements are in anatomic alignment. There is no radiographic evidence of loosening. There is no fracture or dislocation. The soft tissues are unremarkable. XR/XR hip RT min 2V IMPRESSION: Status post right total hip arthroplasty. Electronically signed by: Spencer Salvador MD 11/15/2024 11:30 AM EDT
--- OUTSIDE RECORDS SUMMARY | 2024-11-15 12:03 | XMS_ITS | Patient Health Record ---
Author Organization [facility] Address [address] [place] [address] Care Team Providers Care Hydrology Teacher Name Role Phone Gina(inactive) Elvin CALDERÓN Primary Care Provider U Eb Chavez Jr Unavailable Reason For Referral No Information Medications Medication SIG (Take, Route, Fr equency, Duration) Notes Start Date End Date Status Abilify 10mg Active Cymbalta 60mg Active Wellbutrin 150mg Act agustín Ambien 10mg Active Xanax 0.5mg Active oxyCODONE HCl 5/325mg Active Social History Tobacco Use: Social History Observation Description Date Details (start date - stop date) Never Smoker NA - NA Tobacco Use/Smoking Question Answer Notes Patient is a nonsmoker Alcohol Screen Question Answer Notes Did you have a drink containing alcohol in the p ast year? No Points 0 Interpretation Negative Problems Problem Type SNOMED Code ICD Code Onset Dates Problem Status W/U Status Risk Notes Problem Special screening for malignant neoplasms, colon (V76.51) Active confirmed Plan Of Treatment No Information Insurance Providers Payer Name Payer Address Payer Phone Subscriber Number Group Number Insured Name Patient Relationship to Insured Coverage Start Date Coverage End Date MEDICARE OF [place] [address] [place] [id number] YOVANI KITCHEN Self - patient is the insured MEDICAID OF [facility] [address] [place] [address] [id number] YOVANI KITCHEN Self - patient is the insured Medical (General) History Medical History History ICD Code anxiety impression insomnia Surgical History Surgery Date(Month/Year) right hip replacement left BKA cholecystectomy
== END 2024-11-15 10:59 | disposition home or self-care (01) ==
LOC: HO.XRAY 10:58
PROVIDERS: PCP Internal Medicine; Visit Provider Internal Medicine
DX: M25.551 Pain in right hip (principal); M54.50 Low back pain, unspecified
CPT/HCPCS: 72100; 73502

== ENCOUNTER → 2024-11-15 11:03 | Outpatient (BNV) | payer MEDICARE, SELFPAY | PROVIDERS: PCP Internal Medicine; Visit Provider Radiology Diagnostic Radiology | DX: M25.551 Pain in right hip (principal); M54.50 Low back pain, unspecified | CPT/HCPCS: 73502 ==

== ENCOUNTER 2025-04-21 07:49 | Outpatient (REF) | payer MEDICARE, SELFPAY ==
[2025-04-21 09:32] LABS: Alanine Aminotransferase 14 U/L (0-31); Albumin Level 4.2 g/dL (3.5-5.0); Alkaline Phosphatase 49 U/L (39-117); Anion Gap 11 (12-20); Aspartate Amino Transferase 20 U/L (5-31); Blood Urea Nitrogen 17 mg/dL (9-16); Calcium 9.1 mg/dL (8.4-10.2); Carbon Dioxide 31 mmol/L (22-29); Chloride 104 mmol/L (96-108); Cholesterol 181 mg/dL (<200); Estimated Glomerular Filt Rate > 60; HDL Cholesterol 61 mg/dL (>40); Potassium 3.9 mmol/L (3.3-5.1); Sodium 142 mmol/L (135-145); Total Protein 6.7 g/dL (6.5-8.0); Triglycerides 70 mg/dL (<150)
[2025-04-22 07:09] LABS: Lyme Abs Screen <0.90 index
== END 2025-04-21 07:50 | disposition home or self-care (01) ==
LOC: HO.LAB 07:49
PROVIDERS: PCP Internal Medicine; Visit Provider Internal Medicine
DX: Z01.84 Encounter for antibody response examination (principal); J44.9 Chronic obstructive pulmonary disease, unspecified; E78.5 Hyperlipidemia, unspecified
CPT/HCPCS: 36415; 80053; 80061; 86617; 86618